=== PATIENT | female | born 1935 ===

== ENCOUNTER 2019-05-04 13:35 | Inpatient (IN) | payer MEDICARE ==
--- OUTSIDE RECORDS SUMMARY | 2019-05-04 13:41 | XMS REPORT | Summary of Care ---
:1935 Author Organization [facility] Address [address] [facility] [place] [address] Care Team Providers Name Role Phone Other Unavailable Unavailable Keyonna sEcalona Primary Care Provider Reason for Visit Reason Comments Physical Last pap, mammo, Dexa and colonoscopy dates unknown. Encounter Details Date Type Department Care Team Description 04/29/2019 Office Visit [place] [facility] Keyonna Escalona MD Acquired hypothyroidism (Primary Dx); Medicine [address] Essential hypertension; [address] [place] [address] [place] [address] [phone] Allergies No Known Allergiesdocumented as of this encounter (statuses as of 04/29/2019) Medications Medication Sig Dispensed Refills Start Date End Date Status Calcium Take by mouth 0 Active Carb-Cholecalciferol DAILY. (CALCIUM 600 + D) 600-200 MG-UNIT Oral Tab atorvastatin (LIPITOR) Take 1 Tab by 90 Tab 3 01/09/2017 Active 40 MG Oral mouth DAILY. TabIndications: Lipid disorder levothyroxine TAKE 1 TABLET BY 90 Tab 3 02/02/2019 Active (SYNTHROID) 75 MCG Oral MOUTH EVERY DAY TabIndications: Acquired hypothyroidism valsartan (DIOVAN) 160 TAKE 1 TABLET BY 90 Tab 3 02/02/2019 Active MG Oral TabIndications: MOUTH EVERY DAY Essential hypertension documented as of this encounter (statuses as of 04/29/2019) Active Problems Problem Noted Date ASHD (arteriosclerotic heart disease) 08/05/2018 Overview: Stent placed 20 years ago - Superficial injury of right cornea 06/06/2018 Choroidal nevus, left eye 04/10/2018 Pseudophakia, both eyes 04/10/2018 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, bilateral 04/10/2018 Age related osteoporosis 01/09/2017 Hypothyroid 10/19/2014 Hyperlipidemia 09/10/2014 Hypertension 09/10/2014 Sinoatrial node dysfunction 09/10/2014 High cholesterol Thyroid disease documented as of this encounter (statuses as of 04/29/2019) Immunizations Name Administration Dates Next Due Influenza (IM) Preservative Free 05/07/2018, 06/08/2016, 07/11/2015 PNEUMOCOCCAL POLYSACCHARIDE VACCINE 08/05/2012 Pneumococcal Conjugate(13 Valent) 01/09/2017 documented as of this encounter Social History Tobacco Use Types Packs/Day Years Used Date Never Smoker Smokeless Tobacco: Never Used Alcohol Use Drinks/Week oz/Week Comments Yes 0 Standard drinks or equivalent 0.0 Sex Assigned at Date Recorded Not on file Job Start Date Occupation Industry Not on file Not on file Not on file Travel History Travel Start Travel End No recent travel history available. documented as of this encounter Last Filed Vital Signs Vital Sign Reading Time Taken Comments Blood Pressure 152/84 04/29/2019 10:11 AM EDT Pulse 81 04/29/2019 10:11 AM EDT Temperature - - Respiratory Rate - - Oxygen Saturation 96% 04/29/2019 10:11 AM EDT Inhaled Oxygen Concentration - - Weight 71.6 kg (157 lb 12.8 oz) 04/29/2019 10:11 AM EDT Height 157.5 cm (5' 2") 04/29/2019 10:11 AM EDT Body Mass Index 28.86 04/29/2019 10:11 AM EDT documented in this encounter Progress Notes Keyonna Escalona MD - 04/29/2019 10:40 AM EDT NAME:Kaylan Fang 1935: 1935 ENC Date: 04/29/2019 CC: Chief Complaint Patient presents with Physical Last pap, mammo, Dexa and colonoscopy dates unknown. Kaylan Fang is a 84-y.o. female here for interval follow up 1. Not taking medication regularly ( aka [id number] ) 2.needs handicap parking - Gait unsteady 3. Cottage at the [place] summer / mobile home winter - - Lives alone - Current Outpatient Medications Medication Sig atorvastatin (LIPITOR) 40 MG Oral Tab Take 1 Tab by mouth DAILY. Calcium Carb-Cholecalciferol (CALCIUM 600 + D) 600-200 MG-UNIT Oral Tab Take by mouth DAILY. levothyroxine (SYNTHROID) 75 MCG Oral Tab TAKE 1 TABLET BY MOUTH EVERY DAY valsartan (DIOVAN) 160 MG Oral Tab TAKE 1 TABLET BY MOUTH EVERY DAY No current facility-administered medications for this visit. Patient Active Problem List Diagnosis Date Noted ASHD (arteriosclerotic heart disease) 08/05/2018 Stent placed 20 years ago - Superficial injury of right cornea 06/06/2018 High cholesterol Thyroid disease Choroidal nevus, left eye 04/10/2018 Pseudophakia, both eyes 04/10/2018 Early dry stage nonexudative age-related macular degeneration of both eyes 04/10/2018 Posterior capsule opacification, bilateral 04/10/2018 Age related osteoporosis 01/09/2017 Hypothyroid 10/19/2014 Hyperlipidemia 09/10/2014 Hypertension 09/10/2014 Sinoatrial node dysfunction (HCC) 09/10/2014 History reviewed. No pertinent family history. No cardiopulmonary symptoms No upper or lower GI complaints No urinary tract symptoms. No bruising/ bleeding. No neurological complaints . No insomnia.+ . Social History Tobacco Use Smoking status: Never Smoker Smokeless tobacco: Never Used Substance Use Topics Alcohol use: Yes Alcohol/week: 0.0 standard drinks Drug use: Not on file OBJECTIVE: BP 152/84 | Pulse 81 | Ht 5' 2" (1.575 m) | Wt 157 lb 12.8 oz (71.6 kg) | SpO2 96% | BMI 28.86 kg/m . Heent neg Neck noor bruit Lungs Clear CV rrr Abd soft, nontender, no organomegaly Ext no edema; no lesions; pulse not felt - Good capillary refill - Nails need to be cut- Neuro: intellect intact ; motor tiny steps ( shuffling) no tremor - no cogwheeling Staring gaze - A/P ICD-9-CM ICD-10-CM 1. Acquired hypothyroidism 244.9 E03.9 THYROID STIMULATING HORMONE BASIC METABOLIC PANEL 2. Essential hypertension 401.9 I10 BASIC METABOLIC PANEL 3. Gait disorder 781.2 R26.9 VITAMIN B12 / FOLATE disucss possible parkinson with daughter - Mother not open to discuss or consider referral need- There are no Patient Instructions on file for this visit. AUTHOR: Keyonna Escalona MD 11:41 04/29/2019 documented in this encounter Plan of Treatment Name Type Priority Associated Diagnoses Order Schedule THYROID STIMULATING Lab Routine Acquired hypothyroidism Expected: 2018 HORMONE (Approximate), Expires: 10/26/2019 BASIC METABOLIC PANEL Lab Routine Acquired hypothyroidism Expected: 04/29/2019 Essential hypertension (Approximate), Expires: 10/26/2019 VITAMIN B12 / FOLATE Lab Routine Gait disorder Expected: 04/29/2019 (Approximate), Expires: 04/29/2020 Health Maintenance Due Date Last Done Comments HIV SCREENING 1950 ZOSTER IMMUNIZATION SERIES (1 1986 of 2) FALL RISK ASSESSMENT 2001 MEDICARE ANNUAL WELLNESS VISIT 01/09/2018 01/09/2017 INFLUENZA VACCINE (#1) 2019 06/08/2016, 07/11/2015 DEPRESSION SCREENING 04/29/2020 04/29/2019 PNEUMOCOCCAL 65+YRS Completed 01/09/2017, 08/05/2012 HPV IMMUNIZATION SERIES Aged Out No longer eligible based on patient's age to complete this topic MENINGOCOCCAL VACCINE IMM Aged Out No longer eligible based on patient's age to complete this topic documented as of this encounter Goals Goal Patient Goal Associated Recent Patient-Stated? Author Type Problems Progress Blood Pressure Blood Pressure 152/84 No Iqra, < 150/90 (04/29/2019 MD Keyonna 10:11 AM EDT) Note: This is an individualized treatment (blood pressure) goal for Kaylan Fang: Displayed above (on the left) is your goal for blood pressure control. Your most recent blood pressure is also shown above, on the right. You should try to achieve blood pressures that are lower than your goal listed above (on the left). Weight loss vs. 18 mo Lifestyle 14.2 (04/29/2019 10:11 AM No Keyonna Escalona MD max (lbs) >= 10 EDT) Note: This is an individualized lifestyle goal for Kaylan Fang: Your body mass index (BMI) is more than 30. You should lose weight. A reasonable starting goal is to lose 10 pounds. Displayed above is how many pounds you have lost thus far towards your 10 pound weight loss goal. Take all prescribed medications as directed Self-management Keyonna Cuenca MD Note: This is an individualized self-management goal for Kaylanjose Fang: Please take all prescribed medications as directed. 1. Do not skip doses. If you cannot afford your medications, talk with your doctor. 2. Use a pill reminder system such as a pill box if needed. Your pharmacist can help you with this. 3. Contact your Pharmacy 5 days before your medication runs out. If you cannot take your medications for any reasons, talk with your doctor. 4. Please bring all of your medication bottles and inhalers (or a list of all your medications/inhalers) with you to every visit. Potential barriers to meeting all of your care plan goals will continue to be addressed on an ongoing basis. documented as of this encounter Results Not on filedocumented in this encounter Visit Diagnoses Diagnosis Acquired hypothyroidism - Primary Unspecified hypothyroidism Essential hypertension Unspecified essential hypertension Gait disorder Abnormality of gait documented in this encounter Insurance Payer Benefit Plan Subscriber ID Effective Phone Address Type / Group Dates FREEDOM BLUE FREEDOM xxxxxxxxxxxxxxx 2014-[place] [facility] Guarantor Name Account Type Relation to Date of Phone Billing Patient Address Kaylan Fang Personal/Family 1935 [id number] (Home) [facility] [phone] [place], (Work) [place] [address] documented as of this encounter
[2019-05-04] MEDS ORDERED: nitroGLYCERIN DRIP* 25,000 MCG/250 ML BTL ONE ×2 (14:00→15:20)
[2019-05-04] MEDS ORDERED: Ticagrelor* 90 MG TAB PO ONE (14:08)
--- NOTE | 2019-05-04 14:11 | ED ---
HPI Cardiac - HPI Summary HPI Summary: Pt is an 84 y/o F presenting to the ED for a chief complaint of STEMI and chest pain. Pt reports chest pain that occurred on 05/02/19 and 05/03/19, but denies any CP at the present time. Pt describes the chest pain as left-sided that radiates to the left side near the flank. Pt denies any alleviating or aggravating symptoms. Pt denies SOB or any exacerbating symptoms. - History of Current Complaint Stated Complaint: STEMI Hx Obtained From: Patient Onset/Duration: Started Days Ago - Since 05/02/19, Atraumatic, Still Present Timing: Lasting Days - Since 05/02/19 Initial Severity: Moderate Current Severity: Moderate Pain Scale Used: 0-10 Numeric Chest Pain Location: Left Anterior, Left Lateral Chest Pain Radiates: Yes Chest Pain Radiates To:: Flank - Left Character: Other: - STEMI Aggravating Factor(s): Nothing Alleviating Factor(s): Nothing Associated Signs and Symptoms: Positive: Chest Pain - Left-sided. Negative: Shortness of Breath - Allergy/Home Medications Allergies/Adverse Reactions: Allergies Allergy/AdvReac Type Severity Reaction Status Date / Time No Known Allergies Allergy Verified 05/04/19 16:04 Home Medications: Home Medications Levothyroxine TAB* [Synthroid TAB*] 75 mcg PO DAILY 05/04/19 [History Confirmed 05/04/19] Valsartan TAB* [Diovan TAB*] 160 mg PO DAILY 05/04/19 [History Confirmed ] PMH/Surg Hx/FS Hx/Imm Hx Previously Healthy: Yes Sensory History: Denies: Hx Legally Blind, Hx Deafness Opthamlomology History: Denies: Hx Legally Blind EENT History: Denies: Hx Deafness - Surgical History Surgical History: None Surgery Procedure, Year, and Place: None Infectious Disease History: No Infectious Disease History: Denies: Traveled Outside the [place] in Last 30 Days - Family History Known Family History: Negative: Diabetes - Social History Alcohol Use: None Hx Substance Use: No Substance Use Type: Reports: None Hx Tobacco Use: No Smoking Status (MU): Never Smoked Tobacco Review of Systems Positive: Chest Pain - Left-sided that radiates to the left side, near the left flank, Other - Positive STEMI Negative: Shortness Of Breath All Other Systems Reviewed And Are Negative: Yes Physical Exam - Summary Physical Exam Summary: Appearance: The patient is well-nourished in no acute distress and in no acute pain. Skin: The skin is warm and dry, and skin color reflects adequate perfusion. HEENT: The head is normocephalic and atraumatic. The pupils are equal and reactive. The conjunctivae are clear and without drainage. Nares are patent and without drainage. Mouth reveals moist mucous membranes, and the throat is without erythema and exudate. The external ears are intact. The ear canals are patent and without drainage. The tympanic membranes are intact. Neck: The neck is supple with full range of motion and non-tender. There are no carotid bruits. There is no neck vein distension. Respiratory: Chest is non-tender. Lungs are clear to auscultation and breath sounds are symmetrical and equal. Cardiovascular: Heart is regular rate and rhythm. There is no murmur or rub auscultated. There is no peripheral edema and pulses are symmetrical and equal. Abdomen: The abdomen is soft and non-tender. There are normal bowel sounds heard in all four quadrants and there is no organomegaly palpated. Musculoskeletal: There is no back tenderness noted. Extremities are non-tender with full range of motion. There is good capillary refill. There is no peripheral edema or calf tenderness elicited. Neurological: Patient is alert and oriented to person, place and time. The patient has symmetrical motor strength in all four extremities. Cranial nerves are grossly intact. Deep tendon reflexes are symmetrical and equal in all four extremities. Psychiatric: The patient has an appropriate affect and does not exhibit any anxiety or depression. Triage Information Reviewed: Yes Vital Signs Reviewed: Yes Procedures - Sedation Patient Received Moderate/Deep Sedation with Procedure: No Diagnostics - Laboratory Result Diagrams: 05/04/19 13:43 05/04/19 13:43 Lab Statement: Any lab studies that have been ordered have been reviewed, and results considered in the medical decision making process. - EKG 13:38 Cardiac Rate: Other Rate - STEMI ST Segment: Normal Ectopy: None Summary of EKG Findings: EKG at 13:38 shows 84 BPM with STEMI. Reviewed and interpreted by ED physician. Disposition - Course Course Of Treatment: My initial contact with Ms. Kimbrough was when I had a call from [facility] [place] with a request for transfer for an acute STEMI. He faxed an EKG over which did show an anterolateral STEMI. I accepted transfer of the patient and contacted Dr. Dillon to notify him. We mobilized helicopter for transfer. I requested to be notified when the helicopter was on scene and we had an ETA. When were notified of an ETA we called the code STEMI. I met the patient on arrival here and Dr. Dillon. After preparation he took the patient to the cardiac catheter unit for further evaluation. - Diagnoses Provider Diagnoses: STEMI (ST elevation myocardial infarction) During the Visit The Following Alert/Code Occurred: STEMI - 13:38 - Critical Care Time Critical Care Time: 30-74 min Discharge ED - Sign-Out/Discharge Documenting (check all that apply): Patient Departure - Admit - Discharge Plan Condition: Stable Disposition: ADMITTED TO [facility] - Billing Disposition and Condition Condition: STABLE Disposition: Admitted to [facility] - Attestation Statements Document Initiated by Scribe: Yes Documenting Scribe: Claudia Esteban Provider For Whom Scribe is Documenting (Include Credential): Baljinder Cummins MD Scribe Attestation: IClaudia, scribed for Baljinder Cummins MD on 05/04/19 at 2002. Scribe Documentation Reviewed: Yes Provider Attestation: The documentation as recorded by the Claudia wells accurately reflects the service I personally performed and the decisions made by , Baljinder Cummins MD Status of Scribe Document: Viewed Consult Consult: At 13:48, Dr. Carpenter took the pt to the laborer plumbing.
[2019-05-04 14:13] LABS: ABS Eosinophils 0.1 10^3/ul (0-0.6); ABS Lymphocytes 1.4 10^3/ul (1.0-4.8); ABS Monocytes 0.8 10^3/ul (0-0.8); ABS Neutrophils 7.4 10^3/ul (1.5-7.7); Eosinophil % 0.9 %; Hematocrit 46 % (35-47); Hemoglobin 15.5 g/dL (12.0-16.0); Lymphocyte % 14.4 %; Mean Corpuscular HGB Conc 34 g/dL (31-36); Mean Corpuscular Hemoglobin 31 pg (27-31); Mean Corpuscular Volume 91 fL (80-97); Mean Platelet Volume 8.1 fL (7.4-10.4); Platelet Count 278 10^3/uL (150-450); Red Blood Count 5.05 10^6 /uL (3.70-4.87); Red Cell Distribution Width 14 % (10-15); White Blood Count 9.7 10^3/uL (3.5-10.8)
[2019-05-04 14:37] LABS: ALT 18 U/L (7-52); AST 72 U/L (13-39); Albumin 4.1 g/dL (3.2-5.2); Albumin/Globulin Ratio 1.5 (1-3); Alkaline Phosphatase 101 U/L (34-104); Anion Gap 7 mmol/L (2-11); BUN/Creatinine Ratio 18.4 (8-20); Blood Urea Nitrogen 14 mg/dL (6-24); CO2 Carbon Dioxide 27 mmol/L (22-32); Calcium 9.7 mg/dL (8.6-10.3); Chloride 104 mmol/L (101-111); Creatine Kinase 806 U/L (10-223); EGFR African American 87.9 (>60); EGFR Non-African American 72.7 (>60); Globulin 2.8 g/dL (2-4); Glucose 101 mg/dL (70-100); LDL Cholesterol Direct 206 mg/dL; Sodium 138 mmol/L (135-145); Total Protein 6.9 g/dL (6.4-8.9)
[2019-05-04 14:39] LABS: CKMB ng/mL 109.7 ng/mL (0.6-6.3)
[2019-05-04 14:41] LABS: Troponin I 9.49 ng/mL (<0.04)
[2019-05-04 14:49] LABS: INR 1.09 (0.82-1.09)
[2019-05-04] MEDS ORDERED: Heparin(*) 1000 UNIT/ML 10 ML VIAL CATH LAB IV ONE ×2 (14:52→15:19)
[2019-05-04] MEDS ORDERED: Nitroglycerin TAB 0.4 MG* 0.4 MG TAB SL PRN (14:52)
[2019-05-04] MEDS ORDERED: Acetaminophen TAB* 325 MG PO PRN (14:52)
[2019-05-04] MEDS ORDERED: NS 0.9% 1000 ML** 1,000 ML IV SCH (15:00)
[2019-05-04] MEDS ORDERED: fentaNYL* 50 MCG/ML 2 ML VIAL (100 MCG VIAL) ONE (15:12)
[2019-05-04] MEDS ORDERED: Midazolam* 1 MG/ML 5 ML VIAL (5 MG) ONE (15:12)
[2019-05-04] MEDS ORDERED: VERAPAMIL 2.5 MG/ML 2 ML VIAL ** 5 mg/2 ml ONE (15:19)
[2019-05-04] MEDS ORDERED: Heparin 2 UNITS/ML IVPREMIX* 2,000 ML IV ONE (15:20)
[2019-05-04] MEDS ORDERED: Iodixanol 320 (CONTRAST) 100 ML SDV ONE (15:20)
[2019-05-04] MEDS ORDERED: Lidocaine 1% INJ* 10 MG/ML 30 ML SDV ONE (15:20)
[2019-05-04] MEDS ORDERED: Iohexol 350 (CONTRAST) 200 ML MDV IV ONE (15:20)
[2019-05-04 15:33] LABS: Activated Partial Thrombo Time 196.7 seconds (26.0-38.0)
[2019-05-04] MEDS ORDERED: nitroGLYCERIN DRIP* 25,000 MCG/250 ML BTL IV SCH (16:00)
[2019-05-04 16:13] LABS: Troponin I 40.85 ng/mL (<0.04)
[2019-05-04 16:16] LABS: CKMB ng/mL 119.2 ng/mL (0.6-6.3)
[2019-05-04] MEDS: CAPTopril TAB* 12.5 MG TAB PO SCH ×2 (16:35→21:30)
[2019-05-04 17:19] LABS: Creatine Kinase 890 U/L (10-223)
--- NOTE | 2019-05-04 17:28 | HP ---
CC: Dr. Escalona; Merari Dillon MD * HISTORY AND PHYSICAL: DATE OF ADMISSION: 05/04/19 PRIMARY CARE PHYSICIAN: Dr. Escalona. HISTORY OF PRESENT ILLNESS: An 84-year-old woman transferred from [place] ER with anterior wall ST-elevation infarct. She had remote stenting in [place] in the s, we do not have details currently. She apparently has been having left-sided chest pain and left arm pain for 2 nights in a row, finally went to the ER at [place]. EKG at 12:12 revealed poor R wave progression V1 through V3 with ST elevation in V1 through V5 with slight ST elevation in I and aVL and mony-lateral T-wave inversion. There CBC was unremarkable, BMP revealed a creatinine of 0.9, potassium of 4.1, GFR 60. She received 4000 units of heparin, 324 mg of aspirin, 5 mg of Lopressor IV and arrangements were made to transfer by helicopter to our ER. On arrival here, she was still complaining of mild residual chest discomfort, had systolic blood pressure in the 170s. She has not had any recent change in exercise tolerance, she lives independently , she does not take aspirin. She has not had bleeding, has no contraindications to dual antiplatelet therapy. PAST MEDICAL HISTORY: Hypertension, hypothyroidism. PRE-HOSPITAL MEDICATIONS: 1. Valsartan 160 mg daily. 2. Synthroid 75 mcg daily. ALLERGIES: Negative for medications. FAMILY HISTORY: Negative for premature coronary artery disease. SOCIAL HISTORY: She is a nonsmoker. She is a . REVIEW OF SYSTEMS: General: No weight loss, no fever. She is quite active. 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 GI: No history of peptic ulcer disease or bleeding. Heme: No history of malignancy or anemia. Circulatory: No claudication. Remainder all negative. PHYSICAL EXAMINATION VITAL SIGNS: First ER BP 145/97, pulse 70s to 80s. No ectopy. Sinus rhythm. HEENT: Normal without xanthelasma. NECK: JVP not visible. Carotids palpable without bruits. LUNGS: Her lungs had a few rhonchi, faint expiratory wheezing. CARDIAC: She has a summation gallop, no audible murmur or rub. I cannot feel the apex or RV. ABDOMEN: Soft, nontender with normal bowel sounds, liver and aorta not palpable , no bruits. Femoral pulses 2+. No bruits. EXTREMITIES: Radial pulses 2+, pedal pulses 2+. She has no cyanosis, clubbing or edema. PSYCH: She is oriented and appropriate, alert. SKIN: Warm and perfused. DIAGNOSTIC STUDIES/LAB DATA: As above. IMPRESSION: 1. Anterior wall ST-elevation infarct with late presentation, with very mild residual chest pain and persisting anterior ST elevation on repeat EKG here. She was brought to the label cutter for emergent catheterization after discussion of the procedure, pros and cons, and risks. 2. Hypertension. Per history, controlled. 3. Hypothyroidism. We will continue her thyroid replacement. [id number]/[facility] #: [id number] [facility]
[2019-05-04] MEDS: Atorvastatin* 80 MG TAB PO SCH (17:29)
[2019-05-04] MEDS ORDERED: Carvedilol TAB* 6.25 MG PO SCH (21:00)
[2019-05-04 21:16] LABS: Creatine Kinase 926 U/L (10-223)
[2019-05-04 21:23] LABS: CKMB ng/mL 98.3 ng/mL (0.6-6.3)
[2019-05-04 21:24] LABS: Troponin I 34.74 ng/mL (<0.04)
[2019-05-04] MEDS: Ticagrelor* 90 MG TAB PO SCH (21:30)
[2019-05-05 03:46] LABS: Creatine Kinase 660 U/L (10-223)
[2019-05-05 03:53] LABS: CKMB ng/mL 55.1 ng/mL (0.6-6.3)
[2019-05-05 03:54] LABS: Troponin I 19.76 ng/mL (<0.04)
[2019-05-05 07:05] LABS: Anion Gap 7 mmol/L (2-11); CO2 Carbon Dioxide 24 mmol/L (22-32); Calcium 9.1 mg/dL (8.6-10.3); Chloride 106 mmol/L (101-111); Sodium 137 mmol/L (135-145)
[2019-05-05 07:11] LABS: BUN/Creatinine Ratio 17.6 (8-20); Blood Urea Nitrogen 12 mg/dL (6-24); EGFR Non-African American 82.6 (>60); Glucose 104 mg/dL (70-100)
--- NOTE | 2019-05-05 08:18 | PN ---
Subjective Date of Service: 05/05/19 - late presenting anterior NH s/p COSME to mid LAD Interval History: s/p COSME to mid LAD. Per nursing staff patient became SOB and weak trying to get OOB to bathroom. No recurrent c/o chest pain, dizziness or palpitations. She reports wheezing and shortness of breath. denies right radial access site pain. Medications Active Medications: Acetaminophen (Tylenol Tab*) 650 mg PO Q4H PRN PRN Reason: MILD PAIN or TEMP > 100.4 Aspirin (Aspirin 81 Mg Chew Tab*) 81 mg PO DAILY [facility] Atorvastatin Calcium (Lipitor*) 80 mg PO 1700 [facility] Last Admin: 05/04/19 17:29 Dose: 80 mg Captopril (Capoten Tab*) 12.5 mg PO TID [facility] Last Admin: 05/04/19 21:30 Dose: 12.5 mg Carvedilol (Coreg Tab*) 12.5 mg PO BID [facility] Nitroglycerin (Nitroglycerin Tab 0.4 Mg*) 0.4 mg SL Q5M PRN PRN Reason: ANGINA Ticagrelor (Brilinta*) 90 mg PO BID [facility] Last Admin: 05/04/19 21:30 Dose: 90 mg Objective Vital Signs: Temp Pulse Resp BP Pulse Ox 98.9 F 95 22 163/108 94 05/05/19 03:29 05/05/19 08:00 05/05/19 08:00 05/05/19 07:31 05/05/19 08:00 Oxygen Devices in Use Now: None Appearance: lying in bed, + SOB, A+O x3, cooperative with exam. Ears/Nose/Mouth/Throat: NL Teeth, Lips, Gums, Clear Oropharnyx, Mucous Membranes Moist Neck: NL Appearance and Movements; NL JVP Respiratory: - - + inspiratory and expiratory wheezes noted throughout. no retractions. Cardiovascular: - - Diminished S1, S2, RRR. No murmur or rub. Abdominal: NL Sounds; No Tenderness; No Distention Extremities: No Edema, - - right radial access site is intact, no hematoma. cap refill < 3 seconds. non tender to palpation. Neurological: Alert and Oriented x 3 Lines/Tubes/Other Access: Clean, Dry and Intact Peripheral IV Laboratory Results: 05/04/19 13:43 05/05/19 03:20 INR (Anticoag Therapy) 1.09 (0.82-1.09) 05/04/19 13:43 APTT 196.7 seconds (26.0-38.0) H* 05/04/19 13:43 Total Bilirubin 0.50 mg/dL (0.2-1.0) 05/04/19 13:43 AST 72 U/L (13-39) H 05/04/19 13:43 ALT 18 U/L (7-52) 05/04/19 13:43 Alkaline Phosphatase 101 U/L (34-104) 05/04/19 13:43 CK-MB (CK-2) 55.1 ng/mL (0.6-6.3) H 05/05/19 03:20 B-Natriuretic Peptide 941 pg/mL (<=100) H 05/04/19 13:43 Total Protein 6.9 g/dL (6.4-8.9) 05/04/19 13:43 Albumin 4.1 g/dL (3.2-5.2) 05/04/19 13:43 Globulin 2.8 g/dL (2-4) 05/04/19 13:43 Albumin/Globulin Ratio 1.5 (1-3) 05/04/19 13:43 05/04/19 05/04/19 05/04/19 13:43 15:35 20:43 Troponin I 9.49 H* 40.85 H* 34.74 H* 05/05/19 03:20 Troponin I 19.76 H* Laboratory Results - last 24 hr 05/04/19 05/04/19 05/04/19 13:43 13:43 13:43 WBC 9.7 RBC 5.05 H Hgb 15.5 Hct 46 MCV 91 MCH 31 MCHC 34 RDW 14 Plt Count 278 MPV 8.1 Neut % (Auto) 76.4 Lymph % (Auto) 14.4 [place] % (Auto) 8.0 Eos % (Auto) 0.9 Baso % (Auto) 0.3 Absolute Neuts (auto) 7.4 Absolute Lymphs (auto) 1.4 Absolute Monos (auto) 0.8 Absolute Eos (auto) 0.1 Absolute Basos (auto) 0.0 Absolute Nucleated RBC 0.0 Nucleated RBC % 0.0 INR (Anticoag Therapy) 1.09 APTT 196.7 H* POC Activ Clotting Time Sodium 138 Potassium 4.0 Chloride 104 Carbon Dioxide 27 Anion Gap 7 BUN 14 Creatinine 0.76 Est GFR ( Amer) 87.9 Est GFR (Non-Af Amer) 72.7 BUN/Creatinine Ratio 18.4 Glucose 101 H Lactic Acid Calcium 9.7 Total Bilirubin 0.50 AST 72 H ALT 18 Alkaline Phosphatase 101 Total Creatine Kinase 806 H CK-MB (CK-2) 109.7 H Myoglobin 101.0 H Troponin I 9.49 H* B-Natriuretic Peptide Total Protein 6.9 Albumin 4.1 Globulin 2.8 Albumin/Globulin Ratio 1.5 LDL Cholesterol Direct 206 Blood Type Antibody Screen 05/04/19 05/04/19 05/04/19 13:43 13:43 13:43 WBC RBC Hgb Hct MCV MCH MCHC RDW Plt Count MPV Neut % (Auto) Lymph % (Auto) [place] % (Auto) Eos % (Auto) Baso % (Auto) Absolute Neuts (auto) Absolute Lymphs (auto) Absolute Monos (auto) Absolute Eos (auto) Absolute Basos (auto) Absolute Nucleated RBC Nucleated RBC % INR (Anticoag Therapy) APTT POC Activ Clotting Time Sodium Potassium Chloride Carbon Dioxide Anion Gap BUN Creatinine Est GFR ( Amer) Est GFR (Non-Af Amer) BUN/Creatinine Ratio Glucose Lactic Acid 1.3 Calcium Total Bilirubin AST ALT Alkaline Phosphatase Total Creatine Kinase CK-MB (CK-2) Myoglobin Troponin I B-Natriuretic Peptide 941 H Total Protein Albumin Globulin Albumin/Globulin Ratio LDL Cholesterol Direct Blood Type A Negative Antibody Screen Negative 05/04/19 05/04/19 05/04/19 14:16 14:28 14:38 WBC RBC Hgb Hct MCV MCH MCHC RDW Plt Count MPV Neut % (Auto) Lymph % (Auto) [place] % (Auto) Eos % (Auto) Baso % (Auto) Absolute Neuts (auto) Absolute Lymphs (auto) Absolute Monos (auto) Absolute Eos (auto) Absolute Basos (auto) Absolute Nucleated RBC Nucleated RBC % INR (Anticoag Therapy) APTT POC Activ Clotting Time 146 175 195 Sodium Potassium Chloride Carbon Dioxide Anion Gap BUN Creatinine Est GFR ( Amer) Est GFR (Non-Af Amer) BUN/Creatinine Ratio Glucose Lactic Acid Calcium Total Bilirubin AST ALT Alkaline Phosphatase Total Creatine Kinase CK-MB (CK-2) Myoglobin Troponin I B-Natriuretic Peptide Total Protein Albumin Globulin Albumin/Globulin Ratio LDL Cholesterol Direct Blood Type Antibody Screen 05/04/19 05/04/19 05/05/19 15:35 20:43 03:20 WBC RBC Hgb Hct MCV MCH MCHC RDW Plt Count MPV Neut % (Auto) Lymph % (Auto) [place] % (Auto) Eos % (Auto) Baso % (Auto) Absolute Neuts (auto) Absolute Lymphs (auto) Absolute Monos (auto) Absolute Eos (auto) Absolute Basos (auto) Absolute Nucleated RBC Nucleated RBC % INR (Anticoag Therapy) APTT POC Activ Clotting Time Sodium 137 Potassium 4.0 Chloride 106 Carbon Dioxide 24 Anion Gap 7 BUN 12 Creatinine 0.68 Est GFR ( Amer) 100.0 Est GFR (Non-Af Amer) 82.6 BUN/Creatinine Ratio 17.6 Glucose 104 H Lactic Acid Calcium 9.1 Total Bilirubin AST ALT Alkaline Phosphatase Total Creatine Kinase 890 H 926 H 660 H CK-MB (CK-2) 119.2 H 98.3 H 55.1 H Myoglobin Troponin I 40.85 H* 34.74 H* 19.76 H* B-Natriuretic Peptide Total Protein Albumin Globulin Albumin/Globulin Ratio LDL Cholesterol Direct Blood Type Antibody Screen Diagnostic Imaging: [facility] 05/04/2019 per report in chart; LAD mid 90% underwent successful COSME to mid LAD. LVEF 35%. EKG Data: 05/05/2019; Sinus rhythm rate [address] elevation in V2-V5. + biphasic TW changes noted in V1-V5. Compared to ECG from 05/04/2019 ST elevation has improved Telemetry; sinus rhythm rate 80-90;s no VT Assessment/Plan #1 Late presenting Anterior STEMI; s/p successful COSME/mid LAD. Troponin peaked 05/04/2019 at 40. LVEF 35% on LV gram during [facility]. On ASA 81/day, Brilinta 90mg Po BID, Coreg 6.25mg PO BID and Lipitor 80QHS. She will need uninterrupted DAPTx12 months given presentation was STEMI. right radial access site is intact , no hemtoma. I have asked that she take Brilinta with caffeine to hopefully help with . 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 On Coreg and Captopril therapy. She continues to have uncontrolled HTN, will continue Coreg 6.25mg PO BID. Will increase Captopril. She is having SOB with minimal activity and with communication. Will give 20mg IV Lasix as a trial and re evaluate #3 h/o HLD; LDL goal < 70 now on Lipitor 80QHS. LDL direct this admit was 206. She'll need repeat LFT/FL in 6-8 weeks time. #4 HTN; uncontrolled. Please refer to above #2. #5 Disposition pending course. Patient full code. Will likely update echo tomorrow. Attending: Merari Dillon
[2019-05-05] MEDS ORDERED: Albuterol/Ipratropium NEB.SOL* Albuterol 2.5 MG/Ipratropium 0.5 MG 3 ML INH PRN (08:27)
[2019-05-05] MEDS ORDERED: Furosemide IV* 10 MG/ML 2 ML VIAL (20 MG) IV ONE ×2 (08:28→14:00)
[2019-05-05] MEDS ORDERED: Carvedilol TAB* 6.25 MG PO SCH (09:00)
[2019-05-05] MEDS ORDERED: CAPTopril TAB* 12.5 MG TAB PO SCH (09:00)
[2019-05-05] MEDS: Ticagrelor* 90 MG TAB PO SCH ×2 (09:20→21:37)
[2019-05-05] MEDS: Carvedilol TAB* 6.25 MG PO SCH ×2 (09:20→21:37)
[2019-05-05] MEDS: Aspirin 81 mg CHEW TAB* 81 MG TAB.CHEW PO SCH (09:20)
[2019-05-05] MEDS: CAPTopril TAB* 12.5 MG TAB PO SCH ×2 (13:03→21:37)
[2019-05-05] MEDS: Levothyroxine TAB* 75 MCG TAB PO SCH (13:03)
--- NOTE | 2019-05-05 16:03 | CATH ---
CC: Dr. Escalona; Dr. Merari Dillon * STENT REPORT: DATE OF PROCEDURE: 05/04/19 PRIMARY CARE PHYSICIAN: Dr. Escalona. PROCEDURES: 1. Right radial artery access. 2. Bilateral selective coronary cineangiography. 3. Left heart catheterization. 4. Left ventriculography. 5. Stent placement LAD 2.75 x 20 Synergy drug-eluting stent. HISTORY: An 84-year-old woman presenting late with extensive anterolateral ST elevation infarct with symptoms for the preceding 48 hours. PROCEDURE ACCESS: Right radial artery. SHEATH: 6F Slender. 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 Nitroglycerin 300 mcg IA as well as IV nitroglycerin titrated. 2. Verapamil 3 mg IA. 3. Subcu lidocaine. 4. IV Versed. 5. IV fentanyl. 6. Brilinta 180 mg loading dose. 7. Heparin total of 13,000 units IV. DIAGNOSTIC CATHETER: 5F TIG4, 5F pigtail. GUIDING CATHETER: LAD 6F VL3.5. WIRE: 14 BMW used to deploy a 2.75 X 20 Synergy drug-eluting stent in the mid LAD, which was then post dilated with a 2.75 x 20 NC balloon to 18 atmospheres for 30 seconds. Left heart catheterization and left ventriculogram were then performed. By the end of the procedure, she was pain-free. HEMODYNAMICS: Initial AO 124/84, LV post revascularization 158/13-17, no aortic valve gradient on pullback. ANGIOGRAPHY: Left main: The left main is normal in size, has no stenosis. LAD: The LAD is moderate, there are previously placed proximal stents, which have mild intimal hyperplasia, but no significant stenosis, this is followed by a moderate second diagonal branch after which the LAD has a fairly discrete eccentric 90% stenosis with some thrombus and distal SARA-2 flow. The LAD wraps around the apex. Circumflex: The circumflex is large, dominant, with a moderate first marginal or ramus, followed by smaller second marginal and small posterolateral, followed by a large posterolateral and a moderate circumflex PDA with an intervening smaller posterolateral branch. The circumflex has no significant stenosis. RCA: The RCA is small, not dominant, supplies RV branches, has no stenosis. After LAD stent implantation, high pressure postdilatation, there is no residual stenosis, flow is SARA-3, beyond the stented segment there is a 30% stenosis. LV gram: The anterior and inferior base contract normally; the anterior two- thirds of the anterolateral wall, the apex and the distal third of the inferior apex are all akinetic; estimated LVEF 30% to 35%. There is ectopy-induced mitral regurgitation. CONCLUSION: 1. No stenosis/restenosis of prior proximal LAD stents. 2. High-grade mid LAD stenosis, culprit lesion with extensive anterolateral infarct with late presentation, excellent angiographic results and drug-eluting stent placement. 3. Severe left ventricular systolic dysfunction hopefully at least in part due to stunning. 4. Successful right radial artery access. 5. Moderately elevated LVEDP. [id number]/[facility] #: [id number] ANTHONY
[2019-05-05] MEDS: Atorvastatin* 80 MG TAB PO SCH (16:50)
[2019-05-05] MEDS ORDERED: Melatonin 3 MG TAB PO ONE (21:40)
[2019-05-06] MEDS: Levothyroxine TAB* 75 MCG TAB PO SCH (05:22)
[2019-05-06] MEDS ORDERED: LORazepam TAB(*) 1 MG PO ONE (06:00)
[2019-05-06 06:33] LABS: BUN/Creatinine Ratio 16.9 (8-20); Calcium 9.5 mg/dL (8.6-10.3); EGFR African American 86.6 (>60); EGFR Non-African American 71.6 (>60); Potassium 3.4 mmol/L (3.5-5.0)
[2019-05-06] MEDS ORDERED: Potassium Chlor TAB* 10 MEQ TAB.ER PO ONE (08:19)
[2019-05-06 09:05] LABS: ABS Eosinophils 0.1 10^3/ul (0-0.6); ABS Lymphocytes 1.2 10^3/ul (1.0-4.8); ABS Monocytes 0.7 10^3/ul (0-0.8); ABS Neutrophils 6.4 10^3/ul (1.5-7.7); Eosinophil % 1.5 %; Hematocrit 44 % (35-47); Hemoglobin 14.9 g/dL (12.0-16.0); Lymphocyte % 13.7 %; Mean Corpuscular HGB Conc 34 g/dL (31-36); Mean Corpuscular Hemoglobin 31 pg (27-31); Mean Corpuscular Volume 90 fL (80-97); Mean Platelet Volume 8.2 fL (7.4-10.4); Nucleated Red Blood Cells % 0.1; Platelet Count 289 10^3/uL (150-450); Red Blood Count 4.89 10^6 /uL (3.70-4.87); Red Cell Distribution Width 13 % (10-15); White Blood Count 8.5 10^3/uL (3.5-10.8)
[2019-05-06 09:20] LABS: Urine Appearance Cloudy; Urine Bacteria 1+ (Absent); Urine Bilirubin Negative (Negative); Urine Blood 1+ (Negative); Urine Color Yellow; Urine Glucose Negative (Negative); Urine Ketones 1+ (Negative); Urine Nitrite Positive (Negative); Urine Protein Negative (Negative); Urine Red Blood Cell Absent (Absent); Urine Specific Gravity 1.011 (1.010-1.030); Urine Squamous Epithelial Cell Present (Absent); Urine Urobilinogen Negative (Negative); Urine White Blood Cell 3+(>20/hpf) (Absent)
[2019-05-06 09:21] LABS: Creatine Kinase 360 U/L (10-223); Magnesium 1.9 mg/dL (1.9-2.7)
[2019-05-06] MEDS: Aspirin 81 mg CHEW TAB* 81 MG TAB.CHEW PO SCH (09:22)
[2019-05-06] MEDS: Carvedilol TAB* 6.25 MG PO SCH ×2 (09:22→20:41)
[2019-05-06] MEDS: CAPTopril TAB* 12.5 MG TAB PO SCH ×3 (09:22→20:41)
[2019-05-06] MEDS: Ticagrelor* 90 MG TAB PO SCH ×2 (09:22→20:41)
[2019-05-06 09:30] LABS: Troponin I 9.75 ng/mL (<0.04)
--- NOTE | 2019-05-06 09:35 | PN ---
<AlirioGretchen - Last Filed: 05/06/19 09:29> Subjective Date of Service: 05/06/19 - Anterior STEMI Late presenting, SHF Interval History: s/p COSME to mid LAD. Per nursing staff patient became more confused yesterday. Apparently, this started to occur yesterday afternoon into the evening. No focal neuro deficits on exam. She is confused in regards to time and place but not person. there was a strong urine smell noted when examining her so labs were updated earlier this morning when I was in the room and included a UA. 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 She confirmed her mom does not drink heavily. She also confirmed that she does have mobility problems at baseline. Medications Active Medications: Acetaminophen (Tylenol Tab*) 650 mg PO Q4H PRN PRN Reason: MILD PAIN or TEMP > 100.4 Albuterol/Ipratropium (Duoneb (Albuterol 2.5 Mg/Ipratropium 0.5 Mg)) 1 neb INH Q4H PRN PRN Reason: SOB/WHEEZING Aspirin (Aspirin 81 Mg Chew Tab*) 81 mg PO DAILY [facility] Last Admin: 05/05/19 09:20 Dose: 81 mg Atorvastatin Calcium (Lipitor*) 80 mg PO 1700 [facility] Last Admin: 05/05/19 16:50 Dose: 80 mg Captopril (Capoten Tab*) 25 mg PO TID [facility] Last Admin: 05/05/19 21:37 Dose: 25 mg Carvedilol (Coreg Tab*) 6.25 mg PO BID [facility] Last Admin: 05/05/19 21:37 Dose: 6.25 mg Levothyroxine Sodium (Synthroid Tab*) 75 mcg PO DAILY@0600 [facility] Last Admin: 05/06/19 05:22 Dose: 75 mcg Nitroglycerin (Nitroglycerin Tab 0.4 Mg*) 0.4 mg SL Q5M PRN PRN Reason: ANGINA Potassium Chloride (Klor Con Er Tab*) 20 meq PO ONCE ONE Stop: 05/06/19 14:01 Ticagrelor (Brilinta*) 90 mg PO BID [facility] Last Admin: 05/05/19 21:37 Dose: 90 mg Objective Vital Signs: Temp Pulse Resp BP Pulse Ox 98.4 F 97 22 127/92 93 05/06/19 07:29 05/06/19 09:01 05/06/19 09:01 05/06/19 08:00 05/06/19 09:01 Oxygen Devices in Use Now: None Appearance: sitting in chair eating breakfast, , A+O x1, cooperative with exam but confused. Ears/Nose/Mouth/Throat: NL Teeth, Lips, Gums, Clear Oropharnyx, Mucous Membranes Moist Neck: NL Appearance and Movements; NL JVP Respiratory: - - Clear throughout. no rales or rhonchi noted. respirations are non labored. Cardiovascular: - - Diminished S1, S2, RRR. No murmur or rub. Abdominal: NL Sounds; No Tenderness; No Distention Extremities: No Edema, - - right radial access site is intact, no hematoma. cap refill < 3 seconds. non tender to palpation. Neurological: Alert and Oriented x 3 Lines/Tubes/Other Access: Clean, Dry and Intact Peripheral IV Laboratory Results: 05/06/19 08:39 05/06/19 05:38 INR (Anticoag Therapy) 1.09 (0.82-1.09) 05/04/19 13:43 APTT 196.7 seconds (26.0-38.0) H* 05/04/19 13:43 Total Bilirubin 0.50 mg/dL (0.2-1.0) 05/04/19 13:43 AST 72 U/L (13-39) H 05/04/19 13:43 ALT 18 U/L (7-52) 05/04/19 13:43 Alkaline Phosphatase 101 U/L (34-104) 05/04/19 13:43 CK-MB (CK-2) 55.1 ng/mL (0.6-6.3) H 05/05/19 03:20 B-Natriuretic Peptide 941 pg/mL (<=100) H 05/04/19 13:43 Total Protein 6.9 g/dL (6.4-8.9) 05/04/19 13:43 Albumin 4.1 g/dL (3.2-5.2) 05/04/19 13:43 Globulin 2.8 g/dL (2-4) 05/04/19 13:43 Albumin/Globulin Ratio 1.5 (1-3) 05/04/19 13:43 05/04/19 05/04/19 05/04/19 13:43 15:35 20:43 Troponin I 9.49 H* 40.85 H* 34.74 H* 05/05/19 03:20 Troponin I 19.76 H* Laboratory Results - last 24 hr 05/06/19 05/06/19 05/06/19 05:38 08:39 08:39 WBC 8.5 RBC 4.89 H Hgb 14.9 Hct 44 MCV 90 MCH 31 MCHC 34 RDW 13 Plt Count 289 MPV 8.2 Neut % (Auto) 75.6 Lymph % (Auto) 13.7 [place] % (Auto) 8.8 Eos % (Auto) 1.5 Baso % (Auto) 0.4 Absolute Neuts (auto) 6.4 Absolute Lymphs (auto) 1.2 Absolute Monos (auto) 0.7 Absolute Eos (auto) 0.1 Absolute Basos (auto) 0.0 Absolute Nucleated RBC 0.0 Nucleated RBC % 0.1 Sodium 135 Potassium 3.4 L Chloride 100 L Carbon Dioxide 25 Anion Gap 10 BUN 13 Creatinine 0.77 Est GFR ( Amer) 86.6 Est GFR (Non-Af Amer) 71.6 BUN/Creatinine Ratio 16.9 Glucose 97 Calcium 9.5 Magnesium 1.9 Total Creatine Kinase 360 H Troponin I 9.75 H* Urine Color Urine Appearance Urine pH Ur Specific [place] Urine Protein Urine Ketones Urine Blood Urine Nitrate Urine Bilirubin Urine Urobilinogen Ur Leukocyte Esterase Urine WBC (Auto) Urine RBC (Auto) Ur Squamous Epith Cells Urine Bacteria Urine Glucose 05/06/19 08:54 WBC RBC Hgb Hct MCV MCH MCHC RDW Plt Count MPV Neut % (Auto) Lymph % (Auto) [place] % (Auto) Eos % (Auto) Baso % (Auto) Absolute Neuts (auto) Absolute Lymphs (auto) Absolute Monos (auto) Absolute Eos (auto) Absolute Basos (auto) Absolute Nucleated RBC Nucleated RBC % Sodium Potassium Chloride Carbon Dioxide Anion Gap BUN Creatinine Est GFR ( Amer) Est GFR (Non-Af Amer) BUN/Creatinine Ratio Glucose Calcium Magnesium Total Creatine Kinase Troponin I Urine Color Yellow Urine Appearance Cloudy Urine pH 6.0 Ur Specific [place] 1.011 Urine Protein Negative Urine Ketones 1+ A Urine Blood 1+ A Urine Nitrate Positive A Urine Bilirubin Negative Urine Urobilinogen Negative Ur Leukocyte Esterase 1+ A Urine WBC (Auto) 3+(>20/hpf) A Urine RBC (Auto) Absent Ur Squamous Epith Cells Present A Urine Bacteria 1+ A Urine Glucose Negative Diagnostic Imaging: [facility] 05/04/2019 per report in chart; LAD mid 90% underwent successful COSME to mid LAD. LVEF 35%. EKG Data: 05/06/2019; Sinus rhythm rate [address] elevation in V2-V5. + biphasic TW changes noted in V1-V5. Telemetry; sinus rhythm rate 80-90;s no VT Assessment/Plan #1 Late presenting Anterior STEMI; s/p successful COSME/mid LAD. Troponin peaked 05/04/2019 at 40. LVEF 35% on LV gram during [facility]. On ASA 81/day, Brilinta 90mg Po BID, Coreg 6.25mg PO BID and Lipitor 80QHS. She will need uninterrupted DAPTx12 months given presentation was STEMI. right radial access site is intact , no hemtoma. breathing effort improved after diuresis yesterday. 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 On Coreg and Captopril therapy. will continue Captopril 25mg PO TID, Coreg 6.25mg Po BID. She appears compensated today, responded well to diuresis yesterday. Echo to be updated in the next 48 hours. k+ replaced. #3 h/o HLD; LDL goal < 70 now on Lipitor 80QHS. LDL direct this admit was 206. She'll need repeat LFT/FL in 6-8 weeks time. #4 HTN; controlled. #5 increased confusion; total CK continues to trend down. UA was updated and is nitrate + currently awaiting culture data. She has no focal neuro deficits on exam and is having visual hallucinations. This is likely metabolic. Dr. Dillon updated given patient is s/p [facility]. neuro checks were ordered Q2H x2 however, given metabolic etiology will d/c neuro checks. #6 Disposition pending course. Patient full code. Will likely update echo tomorrow. Attending: Merari Dillon <Merari Dillon - Last Filed: 05/07/19 11:53> Medications Active Medications: Acetaminophen (Tylenol Tab*) 650 mg PO Q4H PRN PRN Reason: MILD PAIN or TEMP > 100.4 Albuterol/Ipratropium (Duoneb (Albuterol 2.5 Mg/Ipratropium 0.5 Mg)) 1 neb INH Q4H PRN PRN Reason: SOB/WHEEZING Aspirin (Aspirin 81 Mg Chew Tab*) 81 mg PO DAILY [facility] Last Admin: 05/07/19 09:26 Dose: 81 mg Atorvastatin Calcium (Lipitor*) 40 mg PO 1700 [facility] Captopril (Capoten Tab*) 25 mg PO TID [facility] Last Admin: 05/07/19 09:26 Dose: 25 mg Carvedilol (Coreg Tab*) 6.25 mg PO BID [facility] Last Admin: 05/07/19 09:26 Dose: 6.25 mg Levothyroxine Sodium (Synthroid Tab*) 75 mcg PO DAILY@0600 [facility] Last Admin: 05/07/19 05:10 Dose: 75 mcg Nitroglycerin (Nitroglycerin Tab 0.4 Mg*) 0.4 mg SL Q5M PRN PRN Reason: ANGINA Spironolactone (Aldactone Tab*) 25 mg PO DAILY [facility] Ticagrelor (Brilinta*) 90 mg PO BID [facility] Last Admin: 05/07/19 09:26 Dose: 90 mg Trimethoprim/Sulfamethoxazole (Bactrim Ds 800/160 Tab*) 1 tab PO BID [facility] Stop: 05/08/19 22:00 Last Admin: 05/07/19 09:26 Dose: 1 tab Objective Vital Signs: Temp Pulse Resp BP Pulse Ox 97.3 F 83 20 111/69 94 05/07/19 08:28 05/07/19 08:28 05/07/19 08:28 05/07/19 08:28 05/07/19 08:28 Laboratory Results: 05/06/19 08:39 05/07/19 10:16 INR (Anticoag Therapy) 1.09 (0.82-1.09) 05/04/19 13:43 APTT 196.7 seconds (26.0-38.0) H* 05/04/19 13:43 Total Bilirubin 0.50 mg/dL (0.2-1.0) 05/04/19 13:43 AST 72 U/L (13-39) H 05/04/19 13:43 ALT 18 U/L (7-52) 05/04/19 13:43 Alkaline Phosphatase 101 U/L (34-104) 05/04/19 13:43 CK-MB (CK-2) 55.1 ng/mL (0.6-6.3) H 05/05/19 03:20 B-Natriuretic Peptide 941 pg/mL (<=100) H 05/04/19 13:43 Total Protein 6.9 g/dL (6.4-8.9) 05/04/19 13:43 Albumin 4.1 g/dL (3.2-5.2) 05/04/19 13:43 Globulin 2.8 g/dL (2-4) 05/04/19 13:43 Albumin/Globulin Ratio 1.5 (1-3) 05/04/19 13:43 05/04/19 05/04/19 05/04/19 13:43 15:35 20:43 Troponin I 9.49 H* 40.85 H* 34.74 H* 05/05/19 05/06/19 03:20 08:39 Troponin I 19.76 H* 9.75 H*
[2019-05-06] MEDS: Sulfamethox/Trimethoprim DS 800/160* TAB PO SCH ×2 (10:55→20:41)
[2019-05-06] MEDS ORDERED: LORazepam PO (enter doses in WAM protocol) PO PRN (11:06)
[2019-05-06] MEDS ORDERED: Potassium Chlor TAB* 20 MEQ TAB.ER PO ONE (14:00)
[2019-05-06] MEDS: Atorvastatin* 80 MG TAB PO SCH (16:42)
[2019-05-07] MEDS: Levothyroxine TAB* 75 MCG TAB PO SCH (05:10)
[2019-05-07] MEDS ORDERED: Perflutren Lipid Microsphere* 3 ML VIAL ONE (07:59)
--- NOTE | 2019-05-07 09:14 | PN ---
<Gretchen Amezquita - Last Filed: 05/07/19 09:08> Subjective Date of Service: 05/07/19 - s/p late presenting anterior STEMI Interval History: s/p COSME to mid LAD. Per nursing staff patient did not require a sitter last night. she is now A+O x3. She reports slight SOB with communication, PT was unable to work with her yesterday due to confusion which improved with initiation of antibiotic therapy. She reports + diarrhea today. No c/o chills, chest pain, palpitations. With position change she reports lightheadedness. Medications Active Medications: Acetaminophen (Tylenol Tab*) 650 mg PO Q4H PRN PRN Reason: MILD PAIN or TEMP > 100.4 Albuterol/Ipratropium (Duoneb (Albuterol 2.5 Mg/Ipratropium 0.5 Mg)) 1 neb INH Q4H PRN PRN Reason: SOB/WHEEZING Aspirin (Aspirin 81 Mg Chew Tab*) 81 mg PO DAILY [facility] Last Admin: 05/06/19 09:22 Dose: 81 mg Atorvastatin Calcium (Lipitor*) 40 mg PO 1700 [facility] Captopril (Capoten Tab*) 25 mg PO TID [facility] Last Admin: 05/06/19 20:41 Dose: 25 mg Carvedilol (Coreg Tab*) 6.25 mg PO BID [facility] Last Admin: 05/06/19 20:41 Dose: 6.25 mg Levothyroxine Sodium (Synthroid Tab*) 75 mcg PO DAILY@0600 [facility] Last Admin: 05/07/19 05:10 Dose: 75 mcg Nitroglycerin (Nitroglycerin Tab 0.4 Mg*) 0.4 mg SL Q5M PRN PRN Reason: ANGINA Ticagrelor (Brilinta*) 90 mg PO BID [facility] Last Admin: 05/06/19 20:41 Dose: 90 mg Trimethoprim/Sulfamethoxazole (Bactrim Ds 800/160 Tab*) 1 tab PO BID [facility] Stop: 05/08/19 22:00 Last Admin: 05/06/19 20:41 Dose: 1 tab Objective Vital Signs: Temp Pulse Resp BP Pulse Ox 98.6 F 77 14 137/72 94 05/07/19 06:02 05/07/19 06:02 05/07/19 06:02 05/07/19 06:02 05/07/19 06:02 Oxygen Devices in Use Now: None Appearance: Lying in bed, A+O x3, cooperative with exam. NAD Eyes: No Scleral Icterus, PERRLA Ears/Nose/Mouth/Throat: NL Teeth, Lips, Gums, Clear Oropharnyx, Mucous Membranes Moist Neck: NL Appearance and Movements; NL JVP Respiratory: - - Clear throughout. no rales or rhonchi noted. respirations are non labored. Cardiovascular: - - Diminished S1, S2, RRR. No murmur or rub. Abdominal: NL Sounds; No Tenderness; No Distention Extremities: No Edema, - - right radial access site is intact, no hematoma. cap refill < 3 seconds. non tender to palpation. Neurological: Alert and Oriented x 3 Lines/Tubes/Other Access: Clean, Dry and Intact Peripheral IV Laboratory Results: 05/06/19 08:39 05/06/19 05:38 INR (Anticoag Therapy) 1.09 (0.82-1.09) 05/04/19 13:43 APTT 196.7 seconds (26.0-38.0) H* 05/04/19 13:43 Total Bilirubin 0.50 mg/dL (0.2-1.0) 05/04/19 13:43 AST 72 U/L (13-39) H 05/04/19 13:43 ALT 18 U/L (7-52) 05/04/19 13:43 Alkaline Phosphatase 101 U/L (34-104) 05/04/19 13:43 CK-MB (CK-2) 55.1 ng/mL (0.6-6.3) H 05/05/19 03:20 B-Natriuretic Peptide 941 pg/mL (<=100) H 05/04/19 13:43 Total Protein 6.9 g/dL (6.4-8.9) 05/04/19 13:43 Albumin 4.1 g/dL (3.2-5.2) 05/04/19 13:43 Globulin 2.8 g/dL (2-4) 05/04/19 13:43 Albumin/Globulin Ratio 1.5 (1-3) 05/04/19 13:43 05/04/19 05/04/19 05/04/19 13:43 15:35 20:43 Troponin I 9.49 H* 40.85 H* 34.74 H* 05/05/19 05/06/19 03:20 08:39 Troponin I 19.76 H* 9.75 H* Laboratory Results - last 24 hr 05/06/19 05/06/19 08:39 08:54 Magnesium 1.9 Total Creatine Kinase 360 H Troponin I 9.75 H* Urine Color Yellow Urine Appearance Cloudy Urine pH 6.0 Ur Specific [place] 1.011 Urine Protein Negative Urine Ketones 1+ A Urine Blood 1+ A Urine Nitrate Positive A Urine Bilirubin Negative Urine Urobilinogen Negative Ur Leukocyte Esterase 1+ A Urine WBC (Auto) 3+(>20/hpf) A Urine RBC (Auto) Absent Ur Squamous Epith Cells Present A Urine Bacteria 1+ A Urine Glucose Negative Diagnostic Imaging: [facility] 05/04/2019 per report in chart; LAD mid 90% underwent successful COSME to mid LAD. LVEF 35%. EKG Data: 05/07/2019; Sinus rhythm rate [address] elevation in V2-V5. + biphasic TW changes noted in V1-V5. Comparable to prior ECGs Telemetry; sinus rhythm rate 80-90;s no VT Assessment/Plan #1 Late presenting Anterior STEMI; s/p successful COSME/mid LAD. Troponin peaked 05/04/2019 at 40. LVEF 35% on LV gram during [facility]. On ASA 81/day, Brilinta 90mg Po BID, Coreg 6.25mg PO BID and Lipitor 80QHS. She will need uninterrupted DAPTx12 months given presentation was STEMI. right radial access site is intact , no hemtoma. Echo pending. Will reduce Lipitor to 40 QHS due to c/o diarrhea not clear if it is due to Lipitor or Bactrim. 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 On Coreg and Captopril therapy. will continue Captopril 25mg PO TID, Coreg 6.25mg Po BID. Will start low dose Lasix 20mg/day. Echo pending. chemistry pending. #3 h/o HLD; LDL goal < 70 now on Lipitor 80QHS, to be reduced to 40mg Po QHS due to c/o diarrhea. LDL direct this admit was 206. She'll need repeat LFT/FL in 6-8 weeks time. #4 HTN; controlled. #5 increased confusion; total CK continues to trend down. UA was updated and is nitrate +, she was started on Bactrim therapy empirically. I spoke with micro today on the phone. Preliminary culture is growing > 100,000 gram negative rods. Sensitivity will be available tomorrow. her mentation has improve greatly since starting antibiotic therapy #6 Disposition pending course. Patient full code. await echo. PT/OT to eval today now that her mentation is back to baseline. Attending: Merari Dillon <Merari Dillon - Last Filed: 05/07/19 11:56> Medications Active Medications: Acetaminophen (Tylenol Tab*) 650 mg PO Q4H PRN PRN Reason: MILD PAIN or TEMP > 100.4 Albuterol/Ipratropium (Duoneb (Albuterol 2.5 Mg/Ipratropium 0.5 Mg)) 1 neb INH Q4H PRN PRN Reason: SOB/WHEEZING Aspirin (Aspirin 81 Mg Chew Tab*) 81 mg PO DAILY [facility] Last Admin: 05/07/19 09:26 Dose: 81 mg Atorvastatin Calcium (Lipitor*) 40 mg PO 1700 [facility] Captopril (Capoten Tab*) 25 mg PO TID [facility] Last Admin: 05/07/19 09:26 Dose: 25 mg Carvedilol (Coreg Tab*) 6.25 mg PO BID [facility] Last Admin: 05/07/19 09:26 Dose: 6.25 mg Levothyroxine Sodium (Synthroid Tab*) 75 mcg PO DAILY@0600 [facility] Last Admin: 05/07/19 05:10 Dose: 75 mcg Nitroglycerin (Nitroglycerin Tab 0.4 Mg*) 0.4 mg SL Q5M PRN PRN Reason: ANGINA Spironolactone (Aldactone Tab*) 25 mg PO DAILY [facility] Ticagrelor (Brilinta*) 90 mg PO BID [facility] Last Admin: 05/07/19 09:26 Dose: 90 mg Trimethoprim/Sulfamethoxazole (Bactrim Ds 800/160 Tab*) 1 tab PO BID [facility] Stop: 05/08/19 22:00 Last Admin: 05/07/19 09:26 Dose: 1 tab Objective Vital Signs: Temp Pulse Resp BP Pulse Ox 97.3 F 83 20 111/69 94 05/07/19 08:28 05/07/19 08:28 05/07/19 08:28 05/07/19 08:28 05/07/19 08:28 Laboratory Results: 05/06/19 08:39 05/07/19 10:16 INR (Anticoag Therapy) 1.09 (0.82-1.09) 05/04/19 13:43 APTT 196.7 seconds (26.0-38.0) H* 05/04/19 13:43 Total Bilirubin 0.50 mg/dL (0.2-1.0) 05/04/19 13:43 AST 72 U/L (13-39) H 05/04/19 13:43 ALT 18 U/L (7-52) 05/04/19 13:43 Alkaline Phosphatase 101 U/L (34-104) 05/04/19 13:43 CK-MB (CK-2) 55.1 ng/mL (0.6-6.3) H 05/05/19 03:20 B-Natriuretic Peptide 941 pg/mL (<=100) H 05/04/19 13:43 Total Protein 6.9 g/dL (6.4-8.9) 05/04/19 13:43 Albumin 4.1 g/dL (3.2-5.2) 05/04/19 13:43 Globulin 2.8 g/dL (2-4) 05/04/19 13:43 Albumin/Globulin Ratio 1.5 (1-3) 05/04/19 13:43 05/04/19 05/04/19 05/04/19 13:43 15:35 20:43 Troponin I 9.49 H* 40.85 H* 34.74 H* 05/05/19 05/06/19 03:20 08:39 Troponin I 19.76 H* 9.75 H* Assessment/Plan Agree except start Aldactone instead of Lasix.
[2019-05-07] MEDS: Sulfamethox/Trimethoprim DS 800/160* TAB PO SCH (09:26)
[2019-05-07] MEDS: CAPTopril TAB* 12.5 MG TAB PO SCH ×3 (09:26→21:08)
[2019-05-07] MEDS: Ticagrelor* 90 MG TAB PO SCH ×2 (09:26→21:07)
[2019-05-07] MEDS: Carvedilol TAB* 6.25 MG PO SCH ×2 (09:26→21:08)
[2019-05-07] MEDS: Aspirin 81 mg CHEW TAB* 81 MG TAB.CHEW PO SCH (09:26)
--- NOTE | 2019-05-07 09:46 | ECHO ---
*[facility]* [place] [address] Fax #: [phone] Limited Transthoracic Echocardiogram Patient: Kaylan Fang : 1935 Study Date: 05/07/2019 Age: 84 Gender: F HR: 81 bpm Height: 62 in /157.5 cm BSA: 1.72 m^2 Weight: 154.7 lb /70.3 kg BMI: 28.4 kg/m^2 *[employer] Operator: * Elsa Richey RD *Referring Physician: * Merari Dillon MD *Reading Physician: * Kev Fernandes MD Indications: Myocardial Infarction (new). History: Risk factors: Hypertension. Diabetes mellitus. Hyperlipidemia. Labs, prior tests, procedures, and surgery: Catheterization (05/04/2019). Performed during the current admission. The study demonstrated coronary artery disease. There was a stenosis in the left anterior descending coronary artery which was treated with a stent. Conclusions Summary: - Left ventricle: Systolic function is moderately reduced. The estimated ejection fraction is 30-35%. - Right ventricle: The cavity size is normal. Wall thickness is mildly increased. Study data: Transthoracic echocardiogram, limited study. Procedure: Transthoracic echocardiography was performed. Image quality was fair. Intravenous Definity , 3 mlswas administered. Complete 2D, spectral Doppler, and color flow Doppler. Location: Bedside. Patient status: Inpatient. Patient room number: 437. No prior study is available for comparison. Rhythm: Normal sinus rhythm with PAC's. Findings Left ventricle: The cavity size is normal. Systolic function is moderately reduced. The estimated ejection fraction is 30-35%. Regional wall motion abnormalities: Hypokinesis of the mid-apicalanteroseptal, inferior, and inferoseptal myocardium. Hypokinesis of the apicalanterior, anterolateral, and inferolateral myocardium. Dyskinesis of the mid anteroseptal myocardium; akinesis of the mid-apical anterior, apical inferior, and apical myocardium; severe hypokinesis of the apical septal and apical lateral myocardium; moderate hypokinesis of the mid inferoseptal and mid anterolateral myocardium; mild hypokinesis of the basal inferoseptal and mid inferior myocardium. Right ventricle: The cavity size is normal. Wall thickness is mildly increased. Systolic function is normal. Pericardium: A prominent pericardial fat pad is present. A trivial pericardial effusion is identified adjacent the the right atrium and the right ventricle free wall. Measurements Right ventricle Value Ref AW thickness, ED (H) 0.8 cm 0.1 - 0.5 Legend: (L) and (H) sunita values outside specified reference range. Prepared and electronically signed by Kev Fernandes MD 05/07/2019 09:44
[2019-05-07 11:00] LABS: BUN/Creatinine Ratio 17.6 (8-20); Calcium 9.5 mg/dL (8.6-10.3); EGFR African American 58.6 (>60); EGFR Non-African American 48.5 (>60); Potassium 4.1 mmol/L (3.5-5.0)
--- NOTE | 2019-05-07 12:06 | PN ---
Hospitalist Progress Note Date of Service: 05/07/19 HOSPITALIST ADDENDUM CAT called for near syncopal episode. On arrival, found elderly lady sitting up in a commode, very pale, mild diaphoresis. She denies CP or dyspnea. As per RN, patient was well earlier today. Transferred to commode and started to have a BM, followed by lightheadedness and paleness. VS were normal except for HR 40. Telemetry strip showed sinus bradycardia with some dropped beats. CVS:normal S1 and S2, RRR Chest: BS+ bilaterally with minimal basilar crackles Fingerstick was 101. A/P: Mrs Fang is an 84yo F with PMH of HTN, hypothyroidism, CAD, admitted for STEMI s/p COSME to LAD. CAT for near syncope, likely vasovagal. - Check EKG, CBC, CMP, INR, troponin - Care transferred to Dr Dillon at bedside.
[2019-05-07 12:25] LABS: ABS Eosinophils 0.1 10^3/ul (0-0.6); ABS Lymphocytes 0.9 10^3/ul (1.0-4.8); ABS Monocytes 0.7 10^3/ul (0-0.8); ABS Neutrophils 7.1 10^3/ul (1.5-7.7); Eosinophil % 1.4 %; Hematocrit 42 % (35-47); Hemoglobin 14.2 g/dL (12.0-16.0); Lymphocyte % 10.4 %; Mean Corpuscular HGB Conc 34 g/dL (31-36); Mean Corpuscular Hemoglobin 31 pg (27-31); Mean Corpuscular Volume 91 fL (80-97); Mean Platelet Volume 8.1 fL (7.4-10.4); Platelet Count 322 10^3/uL (150-450); Red Blood Count 4.62 10^6 /uL (3.70-4.87); Red Cell Distribution Width 14 % (10-15); White Blood Count 8.9 10^3/uL (3.5-10.8)
[2019-05-07 12:30] LABS: INR 1.06 (0.82-1.09)
[2019-05-07 12:42] LABS: ALT 18 U/L (7-52); AST 36 U/L (13-39); Albumin 3.9 g/dL (3.2-5.2); Albumin/Globulin Ratio 1.2 (1-3); Alkaline Phosphatase 96 U/L (34-104); Anion Gap 8 mmol/L (2-11); BUN/Creatinine Ratio 14.3 (8-20); Blood Urea Nitrogen 20 mg/dL (6-24); CO2 Carbon Dioxide 22 mmol/L (22-32); Calcium 9.6 mg/dL (8.6-10.3); Chloride 101 mmol/L (101-111); EGFR African American 43.5 (>60); EGFR Non-African American 35.9 (>60); Globulin 3.3 g/dL (2-4); Glucose 123 mg/dL (70-100); Potassium 4.3 mmol/L (3.5-5.0); Sodium 131 mmol/L (135-145); Total Protein 7.2 g/dL (6.4-8.9)
[2019-05-07 12:50] LABS: Troponin I 4.95 ng/mL (<0.04)
[2019-05-07] MEDS: Atorvastatin* 40 MG TAB PO SCH (17:55)
[2019-05-07] MEDS: Cephalexin CAP* 500 MG PO SCH (21:07)
[2019-05-08 05:36] LABS: BUN/Creatinine Ratio 18.9 (8-20); Calcium 9.3 mg/dL (8.6-10.3); EGFR African American 46.5 (>60); EGFR Non-African American 38.4 (>60); Potassium 3.7 mmol/L (3.5-5.0)
[2019-05-08] MEDS: Levothyroxine TAB* 75 MCG TAB PO SCH (05:47)
[2019-05-08] MEDS ORDERED: Spironolactone TAB* 25 MG PO SCH (09:00)
[2019-05-08] MEDS ORDERED: Furosemide TAB* 20 MG PO SCH (09:00)
[2019-05-08] MEDS: CAPTopril TAB* 12.5 MG TAB PO SCH (09:00)
[2019-05-08] MEDS: Aspirin 81 mg CHEW TAB* 81 MG TAB.CHEW PO SCH (09:29)
[2019-05-08] MEDS: Carvedilol TAB* 6.25 MG PO SCH ×2 (09:29→20:24)
[2019-05-08] MEDS: Ticagrelor* 90 MG TAB PO SCH ×2 (09:29→20:24)
[2019-05-08] MEDS: Cephalexin CAP* 500 MG PO SCH ×2 (09:29→20:24)
--- NOTE | 2019-05-08 09:29 | PN ---
Subjective Date of Service: 05/08/19 - s/p COSME/LAD due to anterior IA Interval History: s/p COSME to mid LAD. Yesterday suffered from vagal event. No events on telemetry last night. Culture data came back and antibiotic regimen was changed. She denies dysuria, hematuria. States she had positional lightheadedness earlier today getting OOB to chair. No syncope, no chest pain. She states for sometime now prior to IA she has had SOB and a non productive cough. Medications Active Medications: Acetaminophen (Tylenol Tab*) 650 mg PO Q4H PRN PRN Reason: MILD PAIN or TEMP > 100.4 Aspirin (Aspirin 81 Mg Chew Tab*) 81 mg PO DAILY [facility] Last Admin: 05/07/19 09:26 Dose: 81 mg Atorvastatin Calcium (Lipitor*) 40 mg PO 1700 [facility] Last Admin: 05/07/19 17:55 Dose: 40 mg Carvedilol (Coreg Tab*) 6.25 mg PO BID [facility] Last Admin: 05/07/19 21:08 Dose: 6.25 mg Cephalexin HCl (Keflex Cap*) 500 mg PO BID [facility] Last Admin: 05/07/19 21:07 Dose: 500 mg Levothyroxine Sodium (Synthroid Tab*) 75 mcg PO DAILY@0600 [facility] Last Admin: 05/08/19 05:47 Dose: 75 mcg Lisinopril (Prinivil Tab*) 15 mg PO DAILY [facility] Nitroglycerin (Nitroglycerin Tab 0.4 Mg*) 0.4 mg SL Q5M PRN PRN Reason: ANGINA Fluticasone/Salmeterol (Advair Diskus 250-50*) 1 puff INH BID [facility] Ticagrelor (Brilinta*) 90 mg PO BID [facility] Last Admin: 05/07/19 21:07 Dose: 90 mg Objective Vital Signs: Temp Pulse Resp BP Pulse Ox 98.2 F 79 20 132/64 94 05/08/19 07:47 05/08/19 07:47 05/08/19 07:47 05/08/19 07:47 05/08/19 07:47 Oxygen Devices in Use Now: None Appearance: sitting in chair, A+O x3, cooperative with exam. NAD Eyes: No Scleral Icterus, PERRLA Ears/Nose/Mouth/Throat: NL Teeth, Lips, Gums, Clear Oropharnyx, Mucous Membranes Moist Neck: NL Appearance and Movements; NL JVP Respiratory: - - Clear throughout. no rales or rhonchi noted. respirations are non labored. Cardiovascular: - - Diminished S1, S2, RRR. No murmur or rub. Abdominal: NL Sounds; No Tenderness; No Distention Extremities: No Edema, - - right radial access site is intact, no hematoma. cap refill < 3 seconds. non tender to palpation. Neurological: Alert and Oriented x 3 Lines/Tubes/Other Access: Clean, Dry and Intact Peripheral IV Laboratory Results: 05/07/19 12:17 05/08/19 04:34 INR (Anticoag Therapy) 1.06 (0.82-1.09) 05/07/19 12:17 APTT 196.7 seconds (26.0-38.0) H* 05/04/19 13:43 Total Bilirubin 0.60 mg/dL (0.2-1.0) 05/07/19 12:17 AST 36 U/L (13-39) 05/07/19 12:17 ALT 18 U/L (7-52) 05/07/19 12:17 Alkaline Phosphatase 96 U/L (34-104) 05/07/19 12:17 CK-MB (CK-2) 55.1 ng/mL (0.6-6.3) H 05/05/19 03:20 B-Natriuretic Peptide 428 pg/mL (<=100) H 05/08/19 04:27 Total Protein 7.2 g/dL (6.4-8.9) 05/07/19 12:17 Albumin 3.9 g/dL (3.2-5.2) 05/07/19 12:17 Globulin 3.3 g/dL (2-4) 05/07/19 12:17 Albumin/Globulin Ratio 1.2 (1-3) 05/07/19 12:17 05/04/19 05/04/19 05/04/19 13:43 15:35 20:43 Troponin I 9.49 H* 40.85 H* 34.74 H* 05/05/19 05/06/19 05/07/19 03:20 08:39 12:17 Troponin I 19.76 H* 9.75 H* 4.95 H* Laboratory Results - last 24 hr 05/06/19 05/07/19 05/07/19 08:54 10:16 11:55 WBC RBC Hgb Hct MCV MCH MCHC RDW Plt Count MPV Neut % (Auto) Lymph % (Auto) [place] % (Auto) Eos % (Auto) Baso % (Auto) Absolute Neuts (auto) Absolute Lymphs (auto) Absolute Monos (auto) Absolute Eos (auto) Absolute Basos (auto) Absolute Nucleated RBC Nucleated RBC % INR (Anticoag Therapy) Sodium 132 L Potassium 4.1 Chloride 101 Carbon Dioxide 22 Anion Gap 9 BUN 19 Creatinine 1.08 H Est GFR ( Amer) 58.6 Est GFR (Non-Af Amer) 48.5 BUN/Creatinine Ratio 17.6 Glucose 100 POC Glucose (mg/dL) 101 H Calcium 9.5 Total Bilirubin AST ALT Alkaline Phosphatase Troponin I B-Natriuretic Peptide Total Protein Albumin Globulin Albumin/Globulin Ratio Urine Color Yellow Urine Appearance Cloudy Urine pH 6.0 Ur Specific [place] 1.011 Urine Protein Negative Urine Ketones 1+ A Urine Blood 1+ A Urine Nitrate Positive A Urine Bilirubin Negative Urine Urobilinogen Negative Ur Leukocyte Esterase 1+ A Urine WBC (Auto) 3+(>20/hpf) A Urine RBC (Auto) Absent Ur Squamous Epith Cells Present A Urine Bacteria 1+ A Urine Glucose Negative 05/07/19 05/07/19 05/07/19 12:17 12:17 12:17 WBC 8.9 RBC 4.62 Hgb 14.2 Hct 42 MCV 91 MCH 31 MCHC 34 RDW 14 Plt Count 322 MPV 8.1 Neut % (Auto) 79.9 Lymph % (Auto) 10.4 [place] % (Auto) 7.8 Eos % (Auto) 1.4 Baso % (Auto) 0.5 Absolute Neuts (auto) 7.1 Absolute Lymphs (auto) 0.9 L Absolute Monos (auto) 0.7 Absolute Eos (auto) 0.1 Absolute Basos (auto) 0.0 Absolute Nucleated RBC 0.0 Nucleated RBC % 0.0 INR (Anticoag Therapy) 1.06 Sodium 131 L Potassium 4.3 Chloride 101 Carbon Dioxide 22 Anion Gap 8 BUN 20 Creatinine 1.40 H Est GFR ( Amer) 43.5 Est GFR (Non-Af Amer) 35.9 BUN/Creatinine Ratio 14.3 Glucose 123 H POC Glucose (mg/dL) Calcium 9.6 Total Bilirubin 0.60 AST 36 ALT 18 Alkaline Phosphatase 96 Troponin I 4.95 H* B-Natriuretic Peptide Total Protein 7.2 Albumin 3.9 Globulin 3.3 Albumin/Globulin Ratio 1.2 Urine Color Urine Appearance Urine pH Ur Specific [place] Urine Protein Urine Ketones Urine Blood Urine Nitrate Urine Bilirubin Urine Urobilinogen Ur Leukocyte Esterase Urine WBC (Auto) Urine RBC (Auto) Ur Squamous Epith Cells Urine Bacteria Urine Glucose 05/08/19 05/08/19 04:27 04:34 WBC RBC Hgb Hct MCV MCH MCHC RDW Plt Count MPV Neut % (Auto) Lymph % (Auto) [place] % (Auto) Eos % (Auto) Baso % (Auto) Absolute Neuts (auto) Absolute Lymphs (auto) Absolute Monos (auto) Absolute Eos (auto) Absolute Basos (auto) Absolute Nucleated RBC Nucleated RBC % INR (Anticoag Therapy) Sodium 135 Potassium 3.7 Chloride 104 Carbon Dioxide 20 L Anion Gap 11 BUN 25 H Creatinine 1.32 H Est GFR ( Amer) 46.5 Est GFR (Non-Af Amer) 38.4 BUN/Creatinine Ratio 18.9 Glucose 92 POC Glucose (mg/dL) Calcium 9.3 Total Bilirubin AST ALT Alkaline Phosphatase Troponin I B-Natriuretic Peptide 428 H Total Protein Albumin Globulin Albumin/Globulin Ratio Urine Color Urine Appearance Urine pH Ur Specific [place] Urine Protein Urine Ketones Urine Blood Urine Nitrate Urine Bilirubin Urine Urobilinogen Ur Leukocyte Esterase Urine WBC (Auto) Urine RBC (Auto) Ur Squamous Epith Cells Urine Bacteria Urine Glucose Diagnostic Imaging: [facility] 05/04/2019 per report in chart; LAD mid 90% underwent successful COSME to mid LAD. LVEF 35%. *[facility]* [place] [address] Fax #: [phone] Limited Transthoracic Echocardiogram Patient: Kaylan Fang : 1935 Study Date: 05/07/2019 Age: 84 Gender: F HR: 81 bpm Height: 62 in /157.5 cm BSA: 1.72 m^2 Weight: 154.7 lb /70.3 kg BMI: 28.4 kg/m^2 *[employer] Director: * Elsa Richey [facility] *Referring Physician: * Merari Dillon MD *Reading Physician: * Kev Fernandes MD Indications: Myocardial Infarction (new). History: Risk factors: Hypertension. Diabetes mellitus. Hyperlipidemia. Labs, prior tests, procedures, and surgery: Catheterization (05/04/2019). Performed during the current admission. The study demonstrated coronary artery disease. There was a stenosis in the left anterior descending coronary artery which was treated with a stent. Conclusions Summary: - Left ventricle: Systolic function is moderately reduced. The estimated ejection fraction is 30-35%. - Right ventricle: The cavity size is normal. Wall thickness is mildly increased. Study data: Transthoracic echocardiogram, limited study. Procedure: Transthoracic echocardiography was performed. Image quality was fair. Intravenous Definity , 3 mlswas administered. Complete 2D, spectral Doppler, and color flow Doppler. Location: This report is only to be considered final once signed by the Provider(s) as displayed in the "<Electronically Signed by >" field (s). Absence of a signature indicates the report is in a draft status and still needs to be finalized. In the event this document was created by someone other than the signing Provider, the individual initiating the document will be listed in the "Entered by:" or "Dictated by:" loera. EKG Data: 05/07/2019; Sinus rhythm rate [address] elevation in V2-V5. + biphasic TW changes noted in V1-V5. Comparable to prior ECGs Telemetry; sinus rhythm rate 80-90;s no VT Assessment/Plan #1 s/p Late presenting anterior STEMI s/p COSME/LAD on 05/04. Trop peaked at 40 05/04. LVEF < 35% per TTE on 05/07/2019. She in on ASA 81/day in combination with Brilinta 90 BID. She will need uninterrupted DAPT X12 months due to presentation being STEMI. SOB and non productive cough pre dates IA thus, she should have oupatient PFT with DLCO. For the time being I'll start Advair empirically. She is on Coreg, and statin therapy. Diarrhea improved with lowering statin dose per patient. #2 ICM; LVEF < 35%, she actually is likely volume contracted given renal insufficiency that is improving. Will transition Captopril to Lisinopril and continue Coreg. Once renal function normalizes if able recommend starting Aldactone. [employer] order placed. #3 h/o HTN; currently normotensive on current regimen. #4 Uncomplicated UTI; culture grew > 100,000 E. Coli and moderate Aerococcus thus, antibiotic was changed to Keflex to cover both organisms. #5 h/o HLD; Goal LDL < 70 on statin therapy. Tolerating lower dose, diarrhea improved. #6 Disposition pending course. Patient full code. PT to work with patient today. Will review plan of care with Dr. Dillon. Attending: Merari Dillon
[2019-05-08] MEDS: Lisinopril TAB* 10 MG PO SCH (09:46)
[2019-05-08] MEDS ORDERED: Loperamide CAP* 2 MG PO ONE (12:01)
[2019-05-08] MEDS: Fluticasone-Salmeterol 250-50* DISKUS INH SCH ×2 (14:11→20:03)
[2019-05-08] MEDS ORDERED: Ondansetron INJ* 2 MG/ML VIAL IV PRN (14:32)
[2019-05-08] MEDS: Atorvastatin* 40 MG TAB PO SCH (20:24)
[2019-05-08] MEDS: Vancomycin CAP* 125 MG CAP PO SCH (20:24)
[2019-05-08] MEDS: Lactobacillus Acidophilus* 1 TAB PO SCH (23:59)
[2019-05-09] MEDS: Levothyroxine TAB* 75 MCG TAB PO SCH (06:07)
[2019-05-09 07:49] LABS: BUN/Creatinine Ratio 22.2 (8-20); Calcium 9.5 mg/dL (8.6-10.3); EGFR African American 53.5 (>60); EGFR Non-African American 44.2 (>60); Potassium 3.8 mmol/L (3.5-5.0)
[2019-05-09] MEDS: Fluticasone-Salmeterol 250-50* DISKUS INH SCH ×2 (08:45→20:08)
[2019-05-09] MEDS: Lisinopril TAB* 10 MG PO SCH (08:57)
[2019-05-09] MEDS: Carvedilol TAB* 6.25 MG PO SCH ×2 (08:58→21:52)
[2019-05-09] MEDS: Cephalexin CAP* 500 MG PO SCH ×2 (08:58→21:53)
[2019-05-09] MEDS: Vancomycin CAP* 125 MG CAP PO SCH ×4 (08:59→21:53)
[2019-05-09] MEDS: Ticagrelor* 90 MG TAB PO SCH ×2 (08:59→21:53)
[2019-05-09] MEDS: Lactobacillus Acidophilus* 1 TAB PO SCH (08:59)
[2019-05-09] MEDS: Aspirin 81 mg CHEW TAB* 81 MG TAB.CHEW PO SCH (08:59)
[2019-05-09] MEDS: Atorvastatin* 40 MG TAB PO SCH (17:46)
[2019-05-10] MEDS: Levothyroxine TAB* 75 MCG TAB PO SCH (06:21)
[2019-05-10 08:13] LABS: BUN/Creatinine Ratio 23.7 (8-20); Calcium 9.5 mg/dL (8.6-10.3); EGFR African American 66.4 (>60); EGFR Non-African American 54.8 (>60)
[2019-05-10] MEDS: Fluticasone-Salmeterol 250-50* DISKUS INH SCH ×2 (08:19→20:02)
[2019-05-10] MEDS: Lactobacillus Acidophilus* 1 TAB PO SCH (08:37)
[2019-05-10] MEDS: Lisinopril TAB* 10 MG PO SCH (08:37)
[2019-05-10] MEDS: Vancomycin CAP* 125 MG CAP PO SCH ×4 (08:38→20:43)
[2019-05-10] MEDS: Cephalexin CAP* 500 MG PO SCH ×2 (08:38→20:43)
[2019-05-10] MEDS: Aspirin 81 mg CHEW TAB* 81 MG TAB.CHEW PO SCH (08:38)
[2019-05-10] MEDS: Carvedilol TAB* 6.25 MG PO SCH ×2 (08:38→20:43)
[2019-05-10] MEDS: Ticagrelor* 90 MG TAB PO SCH ×2 (08:39→20:43)
[2019-05-10] MEDS: Atorvastatin* 40 MG TAB PO SCH (17:34)
[2019-05-11] MEDS: Levothyroxine TAB* 75 MCG TAB PO SCH (05:17)
[2019-05-11] MEDS: Fluticasone-Salmeterol 250-50* DISKUS INH SCH (08:14)
[2019-05-11] MEDS: Ticagrelor* 90 MG TAB PO SCH (08:41)
[2019-05-11] MEDS: Lactobacillus Acidophilus* 1 TAB PO SCH (08:41)
[2019-05-11] MEDS: Vancomycin CAP* 125 MG CAP PO SCH ×2 (08:41→12:02)
[2019-05-11] MEDS: Aspirin 81 mg CHEW TAB* 81 MG TAB.CHEW PO SCH (08:41)
[2019-05-11] MEDS: Lisinopril TAB* 10 MG PO SCH (08:41)
[2019-05-11] MEDS: Carvedilol TAB* 6.25 MG PO SCH (08:41)
[2019-05-11] MEDS: Cephalexin CAP* 500 MG PO SCH (08:41)
--- NOTE | 2019-05-11 09:21 | PN ---
<Gretchen Amezquita - Last Filed: 05/11/19 09:30> Subjective Date of Service: 05/11/19 - Anterior STEMI Interval History: s/p COSME to mid LAD 05/04/2019. Since then course complicated by acute uncomplicated cystitis and CDiff. She qualifies for rehab, we are awaiting her insurance to authorize placement at [place]. She is ambulating with physical therapy when I entered the room. Reports diarrhea, but denies chest pain. States breathing has improved since starting Advair but still has HURTADO and with communication. No recurrent chest pain since PCI. No dizziness. Medications Active Medications: Acetaminophen (Tylenol Tab*) 650 mg PO Q4H PRN PRN Reason: MILD PAIN or TEMP > 100.4 Aspirin (Aspirin 81 Mg Chew Tab*) 81 mg PO DAILY [facility] Last Admin: 05/11/19 08:41 Dose: 81 mg Atorvastatin Calcium (Lipitor*) 40 mg PO 1700 [facility] Last Admin: 05/10/19 17:34 Dose: 40 mg Carvedilol (Coreg Tab*) 6.25 mg PO BID [facility] Last Admin: 05/11/19 08:41 Dose: 6.25 mg Cephalexin HCl (Keflex Cap*) 500 mg PO BID [facility] Stop: 05/12/19 20:59 Last Admin: 05/11/19 08:41 Dose: 500 mg Lactobacillus Rhamnosus (Lactobacillus Acidophilus*) 1 tab PO DAILY [facility] Last Admin: 05/11/19 08:41 Dose: 1 tab Levothyroxine Sodium (Synthroid Tab*) 75 mcg PO DAILY@0600 [facility] Last Admin: 05/11/19 05:17 Dose: 75 mcg Lisinopril (Prinivil Tab*) 15 mg PO DAILY [facility] Last Admin: 05/11/19 08:41 Dose: 15 mg Nitroglycerin (Nitroglycerin Tab 0.4 Mg*) 0.4 mg SL Q5M PRN PRN Reason: ANGINA Ondansetron HCl (Zofran Inj*) 4 mg IV Q4H PRN PRN Reason: NAUSEA Last Admin: 05/10/19 23:21 Dose: 4 mg Fluticasone/Salmeterol (Advair Diskus 250-50*) 1 puff INH BID [facility] Last Admin: 05/11/19 08:14 Dose: 1 puff Ticagrelor (Brilinta*) 90 mg PO BID [facility] Last Admin: 05/11/19 08:41 Dose: 90 mg Vancomycin HCl (Vancomycin Cap*) 125 mg PO QID [facility] Stop: 05/22/19 20:59 Last Admin: 05/11/19 08:41 Dose: 125 mg Objective Vital Signs: Temp Pulse Resp BP Pulse Ox 97.5 F 77 20 116/57 97 05/11/19 08:00 05/11/19 08:15 05/11/19 08:15 05/11/19 08:00 05/11/19 08:15 Oxygen Devices in Use Now: None Appearance: Ambulating in room with physical therapy, NAD, A+O x3. Eyes: No Scleral Icterus, PERRLA Ears/Nose/Mouth/Throat: NL Teeth, Lips, Gums, Clear Oropharnyx, Mucous Membranes Moist Neck: NL Appearance and Movements; NL JVP Respiratory: Clear to Auscultation, - Cardiovascular: - - Diminished S1, S2, RRR. No murmur or rub. Abdominal: NL Sounds; No Tenderness; No Distention Extremities: No Edema, - - right radial access site is intact, no hematoma. cap refill < 3 seconds. non tender to palpation. Neurological: Alert and Oriented x 3 Lines/Tubes/Other Access: Clean, Dry and Intact Peripheral IV Laboratory Results: 05/07/19 12:17 05/10/19 07:27 INR (Anticoag Therapy) 1.06 (0.82-1.09) 05/07/19 12:17 APTT 196.7 seconds (26.0-38.0) H* 05/04/19 13:43 Total Bilirubin 0.60 mg/dL (0.2-1.0) 05/07/19 12:17 AST 36 U/L (13-39) 05/07/19 12:17 ALT 18 U/L (7-52) 05/07/19 12:17 Alkaline Phosphatase 96 U/L (34-104) 05/07/19 12:17 CK-MB (CK-2) 55.1 ng/mL (0.6-6.3) H 05/05/19 03:20 B-Natriuretic Peptide 428 pg/mL (<=100) H 05/08/19 04:27 Total Protein 7.2 g/dL (6.4-8.9) 05/07/19 12:17 Albumin 3.9 g/dL (3.2-5.2) 05/07/19 12:17 Globulin 3.3 g/dL (2-4) 05/07/19 12:17 Albumin/Globulin Ratio 1.2 (1-3) 05/07/19 12:17 05/04/19 05/04/19 05/04/19 13:43 15:35 20:43 Troponin I 9.49 H* 40.85 H* 34.74 H* 05/05/19 05/06/19 05/07/19 03:20 08:39 12:17 Troponin I 19.76 H* 9.75 H* 4.95 H* Diagnostic Imaging: [facility] 05/04/2019 per report in chart; LAD mid 90% underwent successful COSME to mid LAD. LVEF 35%. *[facility]* [place] [address] Fax #: [phone] Limited Transthoracic Echocardiogram Patient: Kaylan Fang : 1935 Study Date: 05/07/2019 Age: 84 Gender: F HR: 81 bpm Height: 62 in /157.5 cm BSA: 1.72 m^2 Weight: 154.7 lb /70.3 kg BMI: 28.4 kg/m^2 *Produce Team Member: * Elas Richey RD *Referring Physician: * Merari Dillon MD *Reading Physician: * Kev Fernandes MD Indications: Myocardial Infarction (new). History: Risk factors: Hypertension. Diabetes mellitus. Hyperlipidemia. Labs, prior tests, procedures, and surgery: Catheterization (05/04/2019). Performed during the current admission. The study demonstrated coronary artery disease. There was a stenosis in the left anterior descending coronary artery which was treated with a stent. Conclusions Summary: - Left ventricle: Systolic function is moderately reduced. The estimated ejection fraction is 30-35%. - Right ventricle: The cavity size is normal. Wall thickness is mildly increased. Study data: Transthoracic echocardiogram, limited study. Procedure: Transthoracic echocardiography was performed. Image quality was fair. Intravenous Definity , 3 mlswas administered. Complete 2D, spectral Doppler, and color flow Doppler. Location: This report is only to be considered final once signed by the Provider(s) as displayed in the "<Electronically Signed by >" field (s). Absence of a signature indicates the report is in a draft status and still needs to be finalized. In the event this document was created by someone other than the signing Provider, the individual initiating the document will be listed in the "Entered by:" or "Dictated by:" loera. EKG Data: 05/07/2019; Sinus rhythm rate [address] elevation in V2-V5. + biphasic TW changes noted in V1-V5. Comparable to prior ECGs Telemetry; sinus rhythm rate 80-90's with PACs. Assessment/Plan #1 s/p Late presenting anterior STEMI s/p COSME/LAD on 05/04. Trop peaked at 40 05/04. LVEF < 35% per TTE on 05/07/2019. She in on ASA 81/day in combination with Brilinta 90 BID. She will need uninterrupted DAPT X12 months due to presentation being STEMI. SOB and non productive cough pre dates [place] thus, she should have oupatient PFT with DLCO she was started on Advair empirically. She is on Coreg, and statin therapy. #2 ICM; LVEF < 35%, she compensated on exam. She did develop volume contraction in the setting of diarrhea. Renal function improving. On Coreg and Lisinopril therapy. Lifevest order placed and patient fitted ultimately patient decided against lifevest. She is aware of risk for sudden cardiac due to increased risk of VT/VF due to severe LV reduction. #3 h/o HTN; currently normotensive on current regimen. #4 Uncomplicated UTI; culture grew > 100,000 E. Coli and moderate Aerococcus thus, On Keflex 500mg PO BID. Last dose 05/12/2019. #5 C-Diff; occurred after being on Bactrim for 24hours. She was started on PO Vanco 125mg PO QID. Will need a total of 14 days treatment. Still reporting diarrhea. #6 h/o HLD; Goal LDL < 70 on statin therapy. Tolerating lower dose. #7 Disposition pending course. Patient full code. Awaiting for insurance authorization for placement at [place]. Will update Dr. Mckinney. Attending: Zhang Mckinney <Zhang Mckinney - Last Filed: 05/12/19 07:52> Medications Active Medications: Acetaminophen (Tylenol Tab*) 650 mg PO Q4H PRN PRN Reason: MILD PAIN or TEMP > 100.4 Aspirin (Aspirin 81 Mg Chew Tab*) 81 mg PO DAILY [facility] Last Admin: 05/11/19 08:41 Dose: 81 mg Atorvastatin Calcium (Lipitor*) 40 mg PO 1700 [facility] Last Admin: 05/10/19 17:34 Dose: 40 mg Carvedilol (Coreg Tab*) 6.25 mg PO BID [facility] Last Admin: 05/11/19 08:41 Dose: 6.25 mg Cephalexin HCl (Keflex Cap*) 500 mg PO BID [facility] Stop: 05/12/19 20:59 Last Admin: 05/11/19 08:41 Dose: 500 mg Lactobacillus Rhamnosus (Lactobacillus Acidophilus*) 1 tab PO DAILY [facility] Last Admin: 05/11/19 08:41 Dose: 1 tab Levothyroxine Sodium (Synthroid Tab*) 75 mcg PO DAILY@0600 [facility] Last Admin: 05/11/19 05:17 Dose: 75 mcg Lisinopril (Prinivil Tab*) 15 mg PO DAILY [facility] Last Admin: 05/11/19 08:41 Dose: 15 mg Nitroglycerin (Nitroglycerin Tab 0.4 Mg*) 0.4 mg SL Q5M PRN PRN Reason: ANGINA Ondansetron HCl (Zofran Inj*) 4 mg IV Q4H PRN PRN Reason: NAUSEA Last Admin: 05/10/19 23:21 Dose: 4 mg Fluticasone/Salmeterol (Advair Diskus 250-50*) 1 puff INH BID [facility] Last Admin: 05/11/19 08:14 Dose: 1 puff Ticagrelor (Brilinta*) 90 mg PO BID [facility] Last Admin: 05/11/19 08:41 Dose: 90 mg Vancomycin HCl (Vancomycin Cap*) 125 mg PO QID [facility] Stop: 05/22/19 20:59 Last Admin: 05/11/19 08:41 Dose: 125 mg Objective Vital Signs: Temp Pulse Resp BP Pulse Ox 97.5 F 77 20 116/57 97 05/11/19 08:00 05/11/19 08:15 05/11/19 08:15 05/11/19 08:00 05/11/19 08:15 Laboratory Results: 05/07/19 12:17 05/10/19 07:27 INR (Anticoag Therapy) 1.06 (0.82-1.09) 05/07/19 12:17 APTT 196.7 seconds (26.0-38.0) H* 05/04/19 13:43 Total Bilirubin 0.60 mg/dL (0.2-1.0) 05/07/19 12:17 AST 36 U/L (13-39) 05/07/19 12:17 ALT 18 U/L (7-52) 05/07/19 12:17 Alkaline Phosphatase 96 U/L (34-104) 05/07/19 12:17 CK-MB (CK-2) 55.1 ng/mL (0.6-6.3) H 05/05/19 03:20 B-Natriuretic Peptide 428 pg/mL (<=100) H 05/08/19 04:27 Total Protein 7.2 g/dL (6.4-8.9) 05/07/19 12:17 Albumin 3.9 g/dL (3.2-5.2) 05/07/19 12:17 Globulin 3.3 g/dL (2-4) 05/07/19 12:17 Albumin/Globulin Ratio 1.2 (1-3) 05/07/19 12:17 05/04/19 05/04/19 05/04/19 13:43 15:35 20:43 Troponin I 9.49 H* 40.85 H* 34.74 H* 05/05/19 05/06/19 05/07/19 03:20 08:39 12:17 Troponin I 19.76 H* 9.75 H* 4.95 H* Assessment/Plan Points of Discussion: The patient was interviewed and examined by me. The above assessment and recommendation were reviewed and discussed with my nurse prectioner Gretchen Amezquita NP. The patient will be discharged, once insurance is confirmed, to [place] inpatient rehab . She will be seen by Dr. Dillon in approximately one week for a wound check , at which point she will be set up for follow up with Dr. Camargo at our [place] cardiac [facility]. This plan was discussed at length with the patient and her family and all were in agreement. All questions were answered to their satisfaction.
--- NOTE | 2019-05-11 12:00 | DS ---
AMENDED REPORT NOW INCLUDES DESIGNATED COSIGNER - ESIGNED BEFORE ADJUSTMENTS CC: Dr. Escalona * DISCHARGE SUMMARY: DATE OF ADMISSION: 05/04/19 DATE OF DISCHARGE: Pending no complications, 05/11/19. PRIMARY PHYSICIAN: Dr. Escalona. ATTENDING PHYSICIAN: Dr. Zhang Mckinney, Cardiology.* (DICTATED BY MALACHI ROMERO NP) ADMITTING DIAGNOSES: 1. Late presenting anterior ST elevation myocardial infarction. 2. History of hypertension. 3. History of hypothyroidism. DISCHARGE DIAGNOSES: 1. Late presenting anterior ST elevation myocardial infarction, status post drug- eluting stent placement to mid left anterior descending. LVEF 30% to 35% . The patient declined LifeVest. She is aware of risk of sudden cardiac due to potential development VT/VF. She is now on aspirin 81 mg a day in combination with Brilinta 90 mg p.o. b.i.d. She will need uninterrupted dual antiplatelet therapy for 12 months. In addition, recommend continuing Coreg and Lipitor therapy. Please note that she is not being discharged on high intensity statin therapy due to complaints of diarrhea. 2. Newly diagnosed coronary artery disease, on aspirin, statin, beta-darien and Brilinta therapy. 3. Hyperlipidemia. LDL this admit 206, now on Lipitor 40 p.o. q.h.s. We will need to repeat fasting lipid panel and liver function tests in 6 to 8 weeks' time. 4. Uncomplicated cystitis. The patient was given Keflex 500 mg p.o. b.i.d. Recommend following with PCP for repeat urine culture to verify adequate treatments. Culture grew more than 100,000 Escherichia coli, moderate aerococcus growth. 5. Clostridium difficile; occurred 24 hours after initiation of antibiotic therapy. She will need 14 days treatment of p.o. vancomycin 125 mg p.o. 4 times a day. She will also need a PCP and close followup. 6. Hypertension. Now normotensive, on Coreg and lisinopril therapy. PROCEDURES PERFORMED: The patient underwent a left heart catheterization with Dr. Merari Dillon on 05/04/19. Per report, a 6-Omani sheath catheter was placed into the right radial artery. 1. Left main; normal in size, no stenosis. 2. LAD is moderate. There is previously placed proximal stents, which have mild intimal hyperplasia, but no significant stenosis. This was followed by a moderate second diag branch after which the LAD has a fairly discrete eccentric 90% stenosis with some thrombus and distal SARA 2 flow. 3. Left circumflex large dominant with a moderate first marginal and ramus followed by a smaller second marginal and smaller posterolateral followed by large posterolateral, moderate left circ PDA with an intervening small posterolateral branch. No stenosis. 4. Right coronary artery, small, not dominant, supplies RV branches, no stenosis. 5. Interventions performed; patient underwent successful 2.75 x 20 mm Synergy drug- eluting stent to mid LAD. COMPLICATIONS: None. COURSE OF HOSPITAL STAY: This is a pleasant 84-year-old female patient with a notable history of coronary artery disease, hypertension, hyperlipidemia with prior LAD stenting, who presented to [facility] on 05/04/19 due to late presenting anterior LA. She was sent from [facility] and taken urgently to the [facility]. She underwent COSME to mid LAD. Post procedure, was transferred to the ICU where she was monitored overnight. Her troponin peaked at 40.85 on 05/04/19. Echocardiogram on 05/06/19 revealed an LVEF of 30% to 35% . There was hypokinesis of the mid apical anteroseptal, inferior and inferoseptal myocardium. Hypokinesis of the apical anterior, anterolateral and inferolateral myocardium. Dyskinesis of the mid anteroseptal myocardium. Akinesis of the mid apical anterior, apical inferior, and apical myocardium. Severe hypokinesis of the apical septal and apical lateral myocardium. The patient developed confusion on 05/05/19. She was given IV Lasix for dyspnea. Urinalysis was updated due to foul smelling urination noted in the room. Urine culture was positive for greater than 100,000 for E. coli and 25,000 to 50,000 for Aerococcus urinae. She was started on p.o. Bactrim. However, renal function worsened and the patient started to complain of diarrhea. Thus, she was transitioned to Keflex 500 b.i.d. C. diff toxin was updated and was positive on 05/08/19. Thus, she is now also on p.o. vancomycin 125 mg 4 times a day. She has remained hemodynamically stable. Blood pressure improved with initiation of RAN inhibitor and carvedilol therapy. Physical Therapy and Occupational Therapy were consulted and treated the patient, recommended rehabilitation. She has had no recurrent complaints of chest pain since presenting on 05/04/19. She continues to have shortness of breath with conversation and exertion. She is euvolemic on physical examination. Chest x- ray was updated on 05/10/19. Per radiology report, there was stigmata of obstructive lung disease. No acute pulmonary or cardiac process evident. There was no pulmonary lesion, pleural effusion, or pneumothorax. She should follow up with PCP to discuss ongoing complaints of shortness of breath that predates her LA. It is possible that she suffers from COPD given abnormal chest x-ray. This does not appear to be related to Brilinta. Again, it pre-dates her LA. Her right radial access has been intact. No evidence of hematoma. Most recent set of vital signs: Temperature 97.5, pulse 80, respirations 15, oxygenation 97 % on room air, blood pressure 116/57. Most recent chemistry 05/10/19, sodium 134, potassium 4, chloride 106, carbon dioxide 20, BUN 23, creatinine 0.97. Creatinine peaked on 05/07/19 at 1.4. Her hemoglobin A1c was 5.2. Last CBC was 05/07/19, white count 8.9, hemoglobin 14.2, hematocrit 42, platelets 322. Pending no complications, she is to be discharged to [facility]. We are currently waiting on her insurance to authorize. RESTRICTIONS: The patient is to remain inactive for 5 to 7 days. She is to not drive until further directed in followup by her garment cutter. She is not to lift more than 5 to 10 pounds for at least 5 to 7 days. FOLLOWUP APPOINTMENTS: 1. The patient is to follow up with PCP, Dr. Keyonna Escalona, in [address] to [address] Merari Dillon, 05/19/19 at 3 p.m. [facility]. Discharge Condition; stable, to be discharge to rehab at [facility] MEDICATIONS: Include: 1. Aspirin 81 mg p.o. daily. 2. Lipitor 40 mg p.o. q.h.s. 3. Coreg 6.25 mg p.o. b.i.d. 4. Brilinta 90 mg p.o. b.i.d. 5. Lisinopril 15 mg a day. 6. Levothyroxine 75 mcg p.o. daily. 7. Vancomycin 125 mg p.o. 4 times a day, last dose is 05/22/19 at 11 p.m. for a total of 14 days of therapy. 8. Sublingual nitroglycerin 0.4 mg sublingual every 5 minutes p.r.n. up to 3 doses. 9. Keflex 500 mg p.o. b.i.d., last dose 05/12/19 at 11 p.m. This would complete [address] Zhang Mckinney has personally seen and examined the patient, agrees with the above assessment and plan. We will await for her insurance company to authorize the patient to be transferred to swing bed at [facility]. ADELIA YEPEZ personally seen and examined the patient and discussed the importance of dual antiplatelet therapy and answered all of her questions to her satifaction. We have follow up scheduled for her. She will be discharged to [facility] for inpatient rehab. Zhang Mckinney MD, FACC,[facility] [id number]/[facility] #: [id number] [facility] HOSPITALJulio C
[2019-05-11 15:36] VITALS: BP 111/49
== END 2019-05-11 15:28 | DRG 247 ==
LOC: ED 13:35 → CHICATH 13:48 → ICU 15:00 → MEDTELE 05-06 10:49
PROVIDERS: ADMIT Internal Medicine Cardiovascular Disease; ATTEND Internal Medicine Cardiovascular Disease
PROC: 4A023N7 Measurement of Cardiac Sampling and Pressure, Left Heart, Percutaneous Approach (ICD-10-PCS; 2019-05-04)
PROC: B2111ZZ Fluoroscopy of Multiple Coronary Arteries using Low Osmolar Contrast (ICD-10-PCS; 2019-05-04)
PROC: B2151ZZ Fluoroscopy of Left Heart using Low Osmolar Contrast (ICD-10-PCS; 2019-05-04)
PROC: 027034Z Dilation of Coronary Artery, One Artery with Drug-eluting Intraluminal Device, Percutaneous Approach (ICD-10-PCS; principal; 2019-05-04 14:00)
DX: I21.09 ST elevation (STEMI) myocardial infarction involving other coronary artery of anterior wall (principal); N30.00 Acute cystitis without hematuria; A04.72 Enterocolitis due to Clostridium difficile, not specified as recurrent; E87.1 Hypo-osmolality and hyponatremia; I50.20 Unspecified systolic (congestive) heart failure; E03.9 Hypothyroidism, unspecified; I25.10 Atherosclerotic heart disease of native coronary artery without angina pectoris; E78.5 Hyperlipidemia, unspecified; R00.1 Bradycardia, unspecified; I25.5 Ischemic cardiomyopathy; B96.20 Unspecified Escherichia coli [E. coli] as the cause of diseases classified elsewhere; B96.89 Other specified bacterial agents as the cause of diseases classified elsewhere; I11.0 Hypertensive heart disease with heart failure; J44.9 Chronic obstructive pulmonary disease, unspecified; Z79.02 Long term (current) use of antithrombotics/antiplatelets; Z79.82 Long term (current) use of aspirin
CPT/HCPCS: 36415; 71046; 80048; 80053; 81003; 81015; 82550; 82553; 83036; 83605; 83721; 83735; 83874; 83880; 84484; 85025; 85347; 85610; 85730; 86850; 86900; 86901; 87077; 87086; 87186; 87493; 87641; 93005; 93308; 94640; 99285; A9270-GY; C1725; C1769; C1876; C1887; C8924; C9600-LD; C9606-LD; G8978-GP-CJ; G8979-GP-CI; G8987-GO-CK; G8988-GO-CI; J1644; J1940; J2250; J2405; J3010